=== PATIENT | female | born 1965 | race Caucasian/White ===

== ENCOUNTER 2020-07-08 08:53 | Day surgery (SDC) | payer BC, SELFPAY ==
[2020-07-01 15:20] VITALS: BMI 26.6
--- NOTE | 2020-07-07 08:25 | P.CONAN_ITS ---
Documented by User: Daysi Lawrence 07/07/20 08:25 HPI - Anesthesia Eval Consult details Narrative: 55yo F for [facility] Past Medical History Medical History COVID-19 vaccine administered History of anxiety Hx of ectopic Hx of renal calculi Surgical History Surgical History Hx of appendectomy Social History Social History Are you a primary wound care physician to a significant other at home: No Do you presently have visiting nurse or other home services: No Smoking Status: Never smoker Use of substances other than those prescribed or required for medical reasons: No Have you been hit, kicked, punched, or otherwise hurt by someone within the past year? If so, by whom?: No Advance Directives Information Provided: No Recently lost weight without trying: No Meds Allergies Allergy/AdvReac Type Severity Reaction Status Date / Time milk AdvReac Intermediate Gastrointestinal Verified 07/01/20 15:24 Upset Home Medications Medication Instructions Recorded Confirmed Last Taken Type paroxetine HCl [Paxil] 20 mg PO DAILY 07/01/20 07/01/20 Unknown History Exam Exam Date and Time: July 07, 2020 0825 Height,Weight and Vital Signs: Height 5 ft 7 in Weight 77.111 kg Assessment and Plan Assessment Anesthesia Assessment: Chart Reviewed Documented by User: Kate Hernandez 07/08/20 09:59 [facility] Past Medical History Medical History COVID-19 vaccine administered History of anxiety Hx of ectopic Hx of renal calculi Surgical History Surgical History Hx of appendectomy Social History Social History Are you a primary wound care physician to a significant other at home: No Do you presently have visiting nurse or other home services: No Smoking Status: Never smoker Use of substances other than those prescribed or required for medical reasons: No Have you been hit, kicked, punched, or otherwise hurt by someone within the past year? If so, by whom?: No Advance Directives Information Provided: No Recently lost weight without trying: No Meds Allergies Allergy/AdvReac Type Severity Reaction Status Date / Time milk AdvReac Intermediate Gastrointestinal Verified 07/01/20 15:24 Upset Home Medications Medication Instructions Recorded Confirmed Last Taken Type paroxetine HCl [Paxil] 20 mg PO DAILY 07/01/20 07/01/20 Unknown History Exam Airway Mallampati Class: II TM Dist: >3cm Neck ROM: Full Assessment and Plan Assessment Anesthesia Assessment: Anesthesia Plan Discussed and Chart Reviewed Final Anesthetic Review NPO: Yes ASA Class: II Final Preanesthetic Review: No Changes in Pt Med Stat, Meds/Allgs Chart Reviewed , Consent Obtained/Reviewed and Anes Risks/Benef Reviewed Patient Risk: Low Procedure Risk: Low Assessment/Block/Sedation in SS: Assess/Block/Sedation-SS Anesthetic Plan Anesthetic Plan: MAC: Disposition: Standard PACU
[2020-07-08 09:03] VITALS: BP 118/79; PULSE 64; RESP 20; TEMP 36.4; O2SAT 98
[2020-07-08] MEDS: Lactated Ringers 1,000 ML 100 ML IVCONT (09:33)
[2020-07-08 11:21] VITALS: BP 100/49; PULSE 67; RESP 16; TEMP 36.5; O2SAT 97
--- NOTE | 2020-07-08 11:26 | PM.OP ---
Brief Operative Note Date of Service: 07/08/20 Pre-op diagnosis: Screening Post-op diagnosis: other (Mild diverticulosis, Minimal internal hemorrhoids) Procedure: Colonoscopy to the cecum and TI Surgeon: Dm Almanza Anesthesia: MAC Estimated blood loss (mL): 0 Pathology: none sent Condition: stable Disposition: PACU
[2020-07-08 11:36] VITALS: BP 127/72; PULSE 62; RESP 16; TEMP 36.5; O2SAT 97
--- NOTE | 2020-07-08 11:42 | OP_ITS ---
SURGEON: Dm Almanza MD INDICATIONS: The patient presents for evaluation of colorectal cancer screening. Full consent has been obtained from her for this, including risks of bleeding and perforation. PREOPERATIVE DIAGNOSIS: Colorectal cancer screening. POSTOPERATIVE DIAGNOSIS: PROCEDURE PERFORMED: Colonoscopy to cecum and terminal ileum. ESTIMATED BLOOD LOSS: COMPLICATIONS: ANESTHESIA: Monitored anesthesia care. ASSISTANTS: SPECIMENS: POSTOPERATIVE DIAGNOSES: Colorectal cancer screening, mild sigmoid diverticulosis, small internal hemorrhoids. DESCRIPTION OF PROCEDURE: The patient was placed in the left lateral decubitus position. The digital rectal exam revealed no abnormalities. The Olympus video pediatric colonoscope was entered into the rectum and advanced easily to the cecum. Once in the cecum, I did identify normal-appearing cecal pouch with appendiceal orifice and a normal-appearing ileocecal valve. The terminal ileum was cannulated and appeared normal. The scope was withdrawn back in the colon. The entire cecum and ileocecal valve appeared normal. The scope was slowly withdrawn assessing all mucosal surfaces carefully. Preparation was excellent. I did not visualize any sign of polyps, colitis, nor angiodysplasia. There was a mild amount of sigmoid diverticulosis. In the rectum, scope was retroflexed visualizing minimal internal hemorrhoids, but no other pathology. The rectal mucosa appeared normal. The scope was straightened out and withdrawn from the patient. She tolerated procedure well and was returned to the recovery area in stable condition. IMPRESSION: 1. Mild sigmoid diverticulosis. 2. Minimal internal hemorrhoids. PLAN: Given the patient's negative colonoscopy and negative family history, I would recommend a followup colonoscopy in 10 years for further screening. She will otherwise see me on a p.r.n. basis. This has been discussed with her . MD JAZMYNE Patel/RENETTA / [id number]
== END 2020-07-08 11:56 | disposition home or self-care (01) ==
PROVIDERS: PCP Internal Medicine; Visit Provider Internal Medicine
PROC: 0DJD8ZZ Inspection of Lower Intestinal Tract, Via Natural or Artificial Opening Endoscopic (ICD-10-PCS; CPT 45378; principal; 2020-07-08 10:10)
DX: Z12.11 Encounter for screening for malignant neoplasm of colon (principal); K57.30 Diverticulosis of large intestine without perforation or abscess without bleeding; K64.8 Other hemorrhoids; F41.9 Anxiety disorder, unspecified; Z79.899 Other long term (current) drug therapy; Z87.442 Personal history of urinary calculi
CPT/HCPCS: 45378

== ENCOUNTER → 2021-02-02 07:54 | Outpatient (REF) | payer BC, SELFPAY ==
--- NOTE | 2021-02-02 | CA_ITS ---
Acquisition Time: 2021-02-02 08:02:54 Total Exercise Time: 00:09:26 Test Indications: Chest Pain Medications: PAROXETINE Protocol: FERNANDO Max HR: 164 BPM 98% of Pred: 166 BPM Max BP: 142/080 mmHG Max Work Load: 10.8 METS Exercise stress test with exercise 9 min 26 sec of Fernando protocol, with 5/10 burning along each side of sternum, no sob, without arrythmia, with normotensive response to exercise, without EKG changes meeting criteria for ischemia. In recovery, her chest discomfort resolved. Test reviewed with Dr Whitlock. Report being called to Dr Clements office with recommendation for stress echocardiogram for further evaluation. Referred By: Juanito Clements Overread By: ANA CRISTINA MARTINEZ
== END ==
LOC: HO.CARD 07:54
PROVIDERS: Visit Provider Internal Medicine
DX: R07.2 Precordial pain (principal)
CPT/HCPCS: 93017

== ENCOUNTER 2021-02-15 10:48 | Outpatient (REF) | payer BC, SELFPAY ==
[2021-02-15 12:57] LABS: Hematocrit 39.8 % (37-47); Hemoglobin 13.1 g/dl (12.0-16.0); Mean Corpuscular HGB Conc 32.9 g/dl (31.0-35.0); Mean Corpuscular Hemoglobin 29.5 pg (27.0-33.0); Mean Corpuscular Volume 89.6 fL (80-98); Mean Platelet Volume 10.6 fL (9.4-12.3); Platelet Count 270 X10*3/uL (160-400); Red Blood Count 4.44 X10*6/uL (4.20-5.50); Red Cell Distribution Width 11.9 % (11.0-16.0); White Blood Count 4.3 X10*3/uL (4.8-10.8)
[2021-02-15 13:04] LABS: Prothrombin Time 11.9 SEC (9.9-13.0)
[2021-02-15 13:25] LABS: Anion Gap 11 (12-20); Blood Urea Nitrogen 8 mg/dL (9-16); Calcium 9.5 mg/dL (8.4-10.2); Carbon Dioxide 27 mmol/L (22-29); Chloride 104 mmol/L (96-108); Cholesterol 218 mg/dL; Estimated Glomerular Filt Rate > 60; Glucose Random 77 mg/dL (60-115); HDL Cholesterol 43 mg/dL; LDL Cholesterol Calculated 152 mg/dl; Potassium 4.5 mmol/L (3.3-5.1); Sodium 137 mmol/L (135-145); Triglycerides 115 mg/dL
[2021-02-16 13:41] LABS: CRP High Sensitivity 1.6 mg/L
== END 2021-02-15 10:49 | disposition home or self-care (01) ==
LOC: HO.LAB 10:48
PROVIDERS: PCP Internal Medicine; Referring Provider Internal Medicine; Visit Provider Internal Medicine Cardiovascular Disease
DX: R07.9 Chest pain, unspecified (principal); E78.5 Hyperlipidemia, unspecified; I25.10 Atherosclerotic heart disease of native coronary artery without angina pectoris
CPT/HCPCS: 36415; 80048; 80061; 85027; 85610; 86141; 93005

== ENCOUNTER → 2021-03-10 14:04 | Outpatient (BNVA) | payer BC, SELFPAY | PROVIDERS: PCP Internal Medicine; Referring Provider Internal Medicine; Visit Provider Nurse Practitioner Family ==

== ENCOUNTER 2021-04-01 15:01 | Outpatient (REF) | payer BC, SELFPAY ==
--- NOTE | 2021-04-01 17:11 | PFT_ITS ---
FLOWS: FEV1 of 78% of predicted at 2.33 L. FVC 81% of predicted at 3.09 L. FEV1 to FVC ratio of 0.76. Positive bronchodilator response. LUNG VOLUMES: Total lung capacity 90% of predicted at 5.00 L. Residual volume 105% of predicted at 2.15 L. Slow vital capacity 82% of predicted at 2.85 L. Expiratory reserve volume 21% of predicted at 0.24 L. Diffusion capacity is normal. IMPRESSION: No obstructive or restrictive ventilatory defect. Positive bronchodilator response. Decreased expiratory reserve volume suggests extrathoracic restriction likely secondary to abdominal obesity. Ryan Montana MD AP/MODL / [id number]
== END 2021-04-01 15:02 | disposition home or self-care (01) ==
LOC: HO.RESP 15:01
PROVIDERS: PCP Internal Medicine; Visit Provider Nurse Practitioner Family
DX: R06.02 Shortness of breath (principal); R07.9 Chest pain, unspecified
CPT/HCPCS: 94060; 94727; 94729

== ENCOUNTER 2021-04-13 10:30 | Outpatient (REF) | payer BC, SELFPAY ==
[2021-04-13 10:35] LABS: MANUAL DIFF FLAG NO
[2021-04-13 10:41] LABS: Eosinophils Absolute Auto 0.1 X10*3/uL (0.0-0.4); Eosinophils Percent Auto 2.2 % (0-4); Hematocrit 38.7 % (37.0-47.0); Imm Gran Abs Auto 0.01 X10*3/uL (0.00-0.03); Imm Gran Pct Auto 0.2 % (0.0-0.4); Lymphocytes Absolute Auto 1.6 X10*3/uL (1.2-4.9); Lymphocytes Percent Auto 38.8 % (20-40); Mean Corpuscular HGB Conc 33.6 g/dl (31.0-35.0); Mean Corpuscular Hemoglobin 30.1 pg (27.0-33.0); Mean Corpuscular Volume 89.6 fL (80.0-98.0); Mean Platelet Volume 10.1 fL (9.4-12.3); Monocytes Absolute Auto 0.3 X10*3/uL (0.1-1.2); Monocytes Percent Auto 7.9 % (2-11); Neutrophils Absolute Auto 2.1 x10*3/uL (2.0-8.3); Neutrophils Percent Auto 49.9 % (45-73); Platelet Count 250 X10*3/uL (160-400); Red Blood Count 4.32 X10*6/uL (4.20-5.50); Red Cell Distribution Width 11.8 % (11.0-16.0); White Blood Count 4.2 X10*3/uL (4.8-10.8)
[2021-04-13 10:57] LABS: Alanine Aminotransferase 18 U/L (0-31); Albumin Level 3.9 g/dL (3.5-5.0); Alkaline Phosphatase 49 U/L (39-117); Anion Gap 10 (12-20); Aspartate Amino Transferase 14 U/L (5-31); Bilirubin Total 0.4 mg/dL (0.0-1.0); Blood Urea Nitrogen 13 mg/dL (9-16); Calcium 9.1 mg/dL (8.4-10.2); Carbon Dioxide 28 mmol/L (22-29); Chloride 107 mmol/L (96-108); Cholesterol 202 mg/dL; Estimated Glomerular Filt Rate > 60; Glucose Fasting 99 mg/dL (60-99); HDL Cholesterol 41 mg/dL; LDL Cholesterol Calculated 145 mg/dl; Potassium 4.7 mmol/L (3.3-5.1); Sodium 140 mmol/L (135-145); Total Protein 6.7 g/dL (6.5-8.0); Triglycerides 83 mg/dL
[2021-04-13 11:06] LABS: Appearance Urine HAZY; Color Urine YELLOW; Glucose Urine UA NEG (NEG); Leukocyte Esterase Urine NEG (NEG); Nitrite Urine NEG (NEG); Specific Gravity - Urine 1.025 (1.005-1.025); Urine Blood NEG (NEG); Urine Ketones NEG (NEG); Urine Protein NEG (NEG-TRACE)
[2021-04-13 11:21] LABS: Vitamin D 25-OH Total 22.6 ng/mL (>30)
== END 2021-04-13 10:31 | disposition home or self-care (01) ==
LOC: HO.LNP 10:30
PROVIDERS: Visit Provider Internal Medicine
DX: Z00.00 Encounter for general adult medical examination without abnormal findings (principal); E55.9 Vitamin D deficiency, unspecified
CPT/HCPCS: 80053; 80061; 81003; 82306; 85025

== ENCOUNTER → 2021-06-09 07:36 | Outpatient (REF) | payer BC, SELFPAY ==
--- NOTE | 2021-06-09 07:38 | CA_ITS ---
Transthoracic Echocardiogram Patient (Last, First, Middle): Lupe Pina A Gender: Female Date of : 1965 Age: 55 Procedure Date: 06/09/2021 Procedure Type: Transthoracic Echocardiogram Location: OP Height: 170.18 cm Weight: 81.65 kg BSA: 1.93 m2 Heart Rate: bpm BP: 120 / 80 mmHg Director Zone: MAGDALENA Hare MD: Jesenia Castillo INBOUND SALES MANAGER-Lorelei Drying Unit Felting Machine Operator: Roberto Whitlock MD Symptoms: R07.9 - Chest pain, unspecified Study Quality: Fair ECG Rhythm: Sinus Conclusions: - Essentially normal study with mild mitral regurgitation Findings Left Ventricle Normal left ventricular size, thickness, and systolic function. The visually estimated ejection fraction is between 60-65%. Diastolic function is normal for age. Right Ventricle Normal right ventricular cavity size and systolic function. Atria Both atria are normal in size. There is lipomatous hypertrophy of the interatrial septum. There is no evidence of interatrial shunt. Aortic Valve Normal aortic valve structure and function. There is no aortic valve stenosis. There is no aortic valve regurgitation. Mitral Valve Normal mitral valve structure and function. There is mild mitral valve regurgitation. There is no mitral valve stenosis. Pulmonic Valve The pulmonic valve was not well visualized. Tricuspid Valve Likely normal tricuspid valve structure and function. There is trace tricuspid valve regurgitation. The right ventricular systolic pressure is normal. Normal right atrial pressure. There is no evidence of pulmonary hypertension. Great Vessels All visible segments of the aorta are normal in size. The pulmonary artery was not well visualized. Venous The inferior vena cava is normal in size and collapses greater than 50% with inspiration. Pericardium/Pleural There is no evidence of pericardial effusion. Prior Study Comparison No prior study available for comparison. Measurements 2D Linear Measurements IVSd: 0.94 0.6-0.9/0.6-1.0 cm LVIDd: 4.57 3.9-5.3/4.2-5.9 cm LVIDd Index: 2.37 2.4-3.2/2.2-3.1 cm/m2 LVIDs: 2.87 2.0-3.6 cm LVPWd: 0.98 0.7-1.1 cm Ao Root: 3.10 2.1-3.5 cm LA Diam: 3.70 2.7-3.8/3.0-4.0 cm LAIDs Index: 1.92 1.5-2.3 cm/m2 LV Mass: 185.43 67-162/88-224 g LV Mass Index: 96.08 43-95/49-115 g/m2 LVOT Diam: 2.10 3.0+(-)1.3 cm 2D Systolic Function EF 4C: 67.80 >55% EF 2C: 61.10 >55% EF BiP: 66.50 >55% Mitral Valve MV Pk E: 0.84 MV PK A: 0.69 MV Decel Time: 296.00 E/A: 1.20 E'Lateral: 8.49 E'Medial: 7.18 E/E' Med: 11.70 E/E' Lat: 9.90 PHT: 87.00 MVA PHT: 2.53 Decel Treasure: 2.84 Aortic Valve AoV Pk Alonso: 1.41 AoV Mn Alonso: 1.11 AoV VTI: 0.34 AoV Pk Grad: 8.00 Aov Mn Grad: 5.00 SAGE Cont.VTI: 2.80 LVOT LVOT Pk Alonso: 1.14 LVOT Mn Alonso: 0.83 LVOT VTI: 0.28 LVOT Pk Grad: 5.00 LVOT Mn Grad: 3.00 LVOT Diam: 2.10 LVOT Area: 3.46 Diastolic Function MV Pk E: 0.84 MV Pk A: 0.69 E/A: 1.20 E'Medial: 7.18 E/E' Med: 11.70 E' Laterial: 8.49 E/E' Lat: 9.90 Right Ventricle TAPSE (mm): 22.80 TVS' Alonso: 12.00 Tricuspid Valve TR Pk Alonso: 1.69 TR Pk Grad: 11.00 RA Press: 3.00 RVSP: 14.00 Great Vessels Aorta Ao Root-2D: 3.10 2.0-3.7 cm Ao Asc: 3.40 2.1-3.4 cm Ao Arch: 2.60 Updated in Other Vendor System with Status of Final Roberto Whitlock MD electronically signed on 06/09/2021 11:22:38 AM with status of Final
== END ==
LOC: HO.CARD 07:36
PROVIDERS: PCP Internal Medicine; Visit Provider Nurse Practitioner Family
DX: R07.9 Chest pain, unspecified (principal); R06.02 Shortness of breath
CPT/HCPCS: 93306

== ENCOUNTER → 2021-07-05 12:28 | Outpatient (BNVA) | payer BC, SELFPAY | PROVIDERS: PCP Internal Medicine; Referring Provider Internal Medicine; Visit Provider Internal Medicine Cardiovascular Disease | DX: R07.9 Chest pain, unspecified (principal) | CPT/HCPCS: 99212 ==

== ENCOUNTER 2021-07-26 14:32 | Outpatient (REF) | payer BC, SELFPAY ==
[2021-07-26 15:53] LABS: MANUAL DIFF FLAG NO
[2021-07-26 16:15] LABS: Basophils Absolute Auto 0.1 X10*3/uL (0.0-0.2); Basophils Percent Auto 0.8 % (0-2); Eosinophils Absolute Auto 0.1 X10*3/uL (0.0-0.4); Eosinophils Percent Auto 1.9 % (0-4); Hematocrit 39.9 % (37.0-47.0); Hemoglobin 13.6 g/dl (12.0-16.0); Imm Gran Abs Auto 0.02 X10*3/uL (0.00-0.03); Imm Gran Pct Auto 0.3 % (0.0-0.4); Lymphocytes Absolute Auto 2.1 X10*3/uL (1.2-4.9); Lymphocytes Percent Auto 32.8 % (20-40); Mean Corpuscular HGB Conc 34.1 g/dl (31.0-35.0); Mean Corpuscular Hemoglobin 30.4 pg (27.0-33.0); Mean Corpuscular Volume 89.3 fL (80.0-98.0); Monocytes Absolute Auto 0.4 X10*3/uL (0.1-1.2); Monocytes Percent Auto 5.6 % (2-11); Neutrophils Absolute Auto 3.7 x10*3/uL (2.0-8.3); Neutrophils Percent Auto 58.6 % (45-73); Platelet Count 305 X10*3/uL (160-400); Red Blood Count 4.47 X10*6/uL (4.20-5.50); Red Cell Distribution Width 11.9 % (11.0-16.0); White Blood Count 6.3 X10*3/uL (4.8-10.8)
[2021-07-26 16:52] LABS: Erythrocyte Sedimentation Rate 5 MM/HR (0-20)
== END 2021-07-26 14:33 | disposition home or self-care (01) ==
LOC: HO.LAB 14:32
PROVIDERS: PCP Internal Medicine; Visit Provider Hospitalist
DX: R06.02 Shortness of breath (principal); R07.9 Chest pain, unspecified; Z01.82 Encounter for allergy testing
CPT/HCPCS: 36415; 82785; 85025; 85652; 86003

== ENCOUNTER 2021-12-21 16:06 | Outpatient (REF) | payer BC, SELFPAY ==
--- NOTE | ~2021-12-21 | XR_ITS ---
EXAMINATION: XR CHEST CLINICAL INFORMATION: Shortness of breath. COMPARISON: None TECHNIQUE: 2 views of the chest were obtained. FINDINGS: No significant abnormality is noted involving the heart, lungs, mediastinum, bony thorax or soft tissues. XR/XR chest 2V IMPRESSION: Unremarkable examination.
== END 2021-12-21 16:07 | disposition home or self-care (01) ==
LOC: HO.XRAY 16:06
PROVIDERS: PCP Internal Medicine; Visit Provider Hospitalist
DX: R07.9 Chest pain, unspecified (principal); R06.02 Shortness of breath
CPT/HCPCS: 71046

== ENCOUNTER → 2022-01-19 16:08 | Outpatient (REF) | payer BC, SELFPAY | LOC: HO.SL 16:08 | PROVIDERS: PCP Internal Medicine; Visit Provider Hospitalist | DX: G47.33 Obstructive sleep apnea (adult) (pediatric) (principal) | CPT/HCPCS: 95806 ==

== ENCOUNTER → 2022-06-23 15:27 | Outpatient (BNVA) | payer BC, SELFPAY | PROVIDERS: PCP Internal Medicine; Visit Provider Hospitalist | DX: J44.9 Chronic obstructive pulmonary disease, unspecified (principal) ==

== ENCOUNTER 2022-07-07 11:10 | Outpatient (REF) | payer BC, SELFPAY ==
[2022-07-07 11:14] LABS: MANUAL DIFF FLAG NO
[2022-07-07 12:48] LABS: Basophils Percent Auto 1.1 % (0-2); Eosinophils Absolute Auto 0.1 X10*3/uL (0.0-0.4); Eosinophils Percent Auto 2.7 % (0-4); Hematocrit 39.6 % (37.0-47.0); Hemoglobin 13.1 g/dl (12.0-16.0); Imm Gran Abs Auto 0.01 X10*3/uL (0.00-0.03); Imm Gran Pct Auto 0.3 % (0.0-0.4); Lymphocytes Absolute Auto 1.4 X10*3/uL (1.2-4.9); Lymphocytes Percent Auto 37.7 % (20-40); Mean Corpuscular HGB Conc 33.1 g/dl (31.0-35.0); Mean Corpuscular Hemoglobin 29.4 pg (27.0-33.0); Mean Platelet Volume 10.8 fL (9.4-12.3); Monocytes Absolute Auto 0.3 X10*3/uL (0.1-1.2); Monocytes Percent Auto 7.2 % (2-11); Neutrophils Absolute Auto 1.9 x10*3/uL (2.0-8.3); Platelet Count 265 X10*3/uL (160-400); Red Blood Count 4.45 X10*6/uL (4.20-5.50); Red Cell Distribution Width 12.3 % (11.0-16.0); White Blood Count 3.8 X10*3/uL (4.8-10.8)
[2022-07-07 12:51] LABS: Appearance Urine Cloudy; Color Urine Yellow; Glucose Urine UA Negative (Negative); Leukocyte Esterase Urine Trace (Negative); Nitrite Urine Negative (Negative); Specific Gravity - Urine 1.025 (1.005-1.025); UMIC TRIGGER UACC YES; Urine Blood Negative (Negative); Urine Ketones Negative (Negative); Urine Protein Negative (Neg-Trace)
[2022-07-07 13:05] LABS: Bacteria Urine 2+ (None Seen); Hyaline Casts Urine 0-2 /LPF (0-2); Other Crystals Urine Present; RBC Urine 0-2 /HPF (0-2); WBC Urine 0-5 /HPF (0-5)
[2022-07-07 14:02] LABS: Alanine Aminotransferase 37 U/L (0-31); Albumin Level 4.1 g/dL (3.5-5.0); Alkaline Phosphatase 57 U/L (39-117); Anion Gap 10 (12-20); Aspartate Amino Transferase 24 U/L (5-31); Bilirubin Total 0.5 mg/dL (0.0-1.0); Blood Urea Nitrogen 16 mg/dL (9-16); Carbon Dioxide 30 mmol/L (22-29); Chloride 104 mmol/L (96-108); Cholesterol 233 mg/dL; Estimated Glomerular Filt Rate > 60; Glucose Fasting 99 mg/dL (60-99); HDL Cholesterol 43 mg/dL; LDL Cholesterol Calculated 173 mg/dl; Potassium 4.2 mmol/L (3.3-5.1); Sodium 140 mmol/L (135-145); Total Protein 6.7 g/dL (6.5-8.0); Triglycerides 85 mg/dL
== END 2022-07-07 11:11 | disposition home or self-care (01) ==
LOC: HO.LNP 11:10
PROVIDERS: Visit Provider Internal Medicine
DX: Z00.00 Encounter for general adult medical examination without abnormal findings (principal); E55.9 Vitamin D deficiency, unspecified
CPT/HCPCS: 80053; 80061; 81001; 82306; 85025

== ENCOUNTER 2022-07-14 16:16 | Outpatient (REF) | payer BC, SELFPAY ==
[2022-07-14 16:19] LABS: MANUAL DIFF FLAG NO
[2022-07-14 16:32] LABS: Basophils Absolute Auto 0.1 X10*3/uL (0.0-0.2); Basophils Percent Auto 1.3 % (0-2); Eosinophils Absolute Auto 0.1 X10*3/uL (0.0-0.4); Eosinophils Percent Auto 2.5 % (0-4); Hemoglobin 13.3 g/dl (12.0-16.0); Imm Gran Abs Auto 0.01 X10*3/uL (0.00-0.03); Imm Gran Pct Auto 0.2 % (0.0-0.4); Lymphocytes Percent Auto 42.7 % (20-40); Mean Corpuscular HGB Conc 32.4 g/dl (31.0-35.0); Mean Corpuscular Hemoglobin 29.4 pg (27.0-33.0); Mean Corpuscular Volume 90.5 fL (80.0-98.0); Mean Platelet Volume 10.1 fL (9.4-12.3); Monocytes Absolute Auto 0.4 X10*3/uL (0.1-1.2); Monocytes Percent Auto 8.2 % (2-11); Neutrophils Absolute Auto 2.2 x10*3/uL (2.0-8.3); Neutrophils Percent Auto 45.1 % (45-73); Platelet Count 305 X10*3/uL (160-400); Red Blood Count 4.53 X10*6/uL (4.20-5.50); Red Cell Distribution Width 12.1 % (11.0-16.0); White Blood Count 4.8 X10*3/uL (4.8-10.8)
== END 2022-07-14 16:17 | disposition home or self-care (01) ==
LOC: HO.LNP 16:16
PROVIDERS: Visit Provider Internal Medicine
DX: D70.9 Neutropenia, unspecified (principal)
CPT/HCPCS: 85025

== ENCOUNTER → 2022-10-27 15:40 | Outpatient (BNVA) | payer BC, SELFPAY | PROVIDERS: PCP Internal Medicine; Visit Provider Hospitalist | DX: J44.9 Chronic obstructive pulmonary disease, unspecified (principal) ==

== ENCOUNTER 2023-03-14 10:33 | Outpatient (REF) | payer BC, SELFPAY ==
[2023-03-14 10:36] LABS: MANUAL DIFF FLAG NO
[2023-03-14 11:14] LABS: Basophils Percent Auto 0.8 % (0-2); Eosinophils Absolute Auto 0.1 X10*3/uL (0.0-0.4); Eosinophils Percent Auto 2.9 % (0-4); Hematocrit 40.9 % (37.0-47.0); Hemoglobin 13.3 g/dl (12.0-16.0); Imm Gran Abs Auto 0.01 X10*3/uL (0.00-0.03); Imm Gran Pct Auto 0.2 % (0.0-0.4); Lymphocytes Absolute Auto 2.1 X10*3/uL (1.2-4.9); Lymphocytes Percent Auto 42.2 % (20-40); Mean Corpuscular HGB Conc 32.5 g/dl (31.0-35.0); Mean Corpuscular Hemoglobin 28.6 pg (27.0-33.0); Mean Platelet Volume 10.3 fL (9.4-12.3); Monocytes Absolute Auto 0.3 X10*3/uL (0.1-1.2); Monocytes Percent Auto 6.6 % (2-11); Neutrophils Absolute Auto 2.3 x10*3/uL (2.0-8.3); Neutrophils Percent Auto 47.3 % (45-73); Platelet Count 298 X10*3/uL (160-400); Red Blood Count 4.65 X10*6/uL (4.20-5.50); Red Cell Distribution Width 11.9 % (11.0-16.0); White Blood Count 4.9 X10*3/uL (4.8-10.8)
== END 2023-03-14 10:34 | disposition home or self-care (01) ==
LOC: HO.LNP 10:33
PROVIDERS: Visit Provider Internal Medicine
DX: D70.9 Neutropenia, unspecified (principal)
CPT/HCPCS: 85025

== ENCOUNTER 2023-04-03 12:42 | Outpatient (AMB) | payer BC, SELFPAY ==
[2023-04-03 12:47] VITALS: BP 110/60; PULSE 62
--- NOTE | 2023-04-03 12:47 | MHC.OFFVIS ---
Intake Vital Signs 04/03/23 12:47 Height 5 ft 7 in BMI Reason not done Patient refused/unable BP 110/60 Blood Pressure Location Lt brachial Position Sitting Pulse 62 Intake Visit Reasons: Last seen 07-13/Dr. 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 She has exhausted all other options including PFTs which had negative as well as acid reflux which is negative. She also tried medicines facet reflux prior to exercise. However she notices when she pushes herself and heart rate rises at about 155-160 beats per minute she would notice the symptoms. At a lower heart rate she does not notice the symptoms. She then usually has to stop exercising in the symptoms resolved. She does not get any other symptoms at other times. She is very bothered at this is affecting her lifestyle. [facility] Medical History (Updated 10/30/22 @ 23:38 by Kuldeep Pascual MD) Has daytime drowsiness Hx of renal calculi Hx of ectopic COVID-19 vaccine administered History of anxiety Surgical History History of colposcopy History of colonoscopy History of appendectomy History of cardiac catheterization Family History Father No problems noted. Mother Afib Social History Are you a primary family day care provider to a significant other at home: No Do you presently have visiting nurse or other home services: No Patient Tobacco Use Status: Never used Tobacco Review of Systems Const Reports chills, Reports fatigue, Reports fever(s), Reports frequent falls, Reports weakness, Reports weight gain and Reports weight loss ENT Reports dizziness Card Reports chest pain, Reports leg edema, Reports lightheadedness, Reports palpitations, Reports dyspnea and Reports dyspnea on exertion Resp Reports cough, Reports dyspnea and Reports dyspnea on exertion GI Reports hematochezia Musc Reports abnormal gait, Reports muscle weakness, Reports numbness, Reports radiating pain into limb and Reports tingling Neuro Denies Abnormal speech present, Reports abnormal gait, Reports dizziness, Reports frequent falls, Reports numbness, Reports tingling and Reports weakness Endo Reports fatigue and Reports palpitations Physical Exam Vital Signs: Last Vital Signs Pulse 62 04/03/23 12:47 BP 110/60 04/03/23 12:47 Const General: cooperative, comfortable, no acute distress, well developed, alert, awake and well groomed Nutritional Appearance: average body habitus Orientation/consciousness: patient oriented x3 Limitations: no limitations Neck Neck: Yes trachea midline, Yes supple and Yes no JVD Chest Chest palpation & inspection: normal inspection of the chest Resp Effort & Inspection: normal respiratory effort Auscultation: clear to auscultation bilaterally Cardio Jugular venous distension: no JVD Palpation: normal PMI Rate: regular rate Rhythm: regular rhythm Heart sounds: S1 normal heart sound present, S2 normal heart sound present, no click, no gallops, no murmurs and no rubs GI Auscultation: normal bowel sounds Skin General skin exam: no rashes or lesions noted Neuro General: patient oriented x3 and no focal motor deficits Speech: No Abnormal speech present Extrem General: Yes no clubbing, cyanosis or edema Office Procedures EKG Details: EKG shows normal sinus rhythm with left anterior fascicular block 22757-[id number], Complete Assessment & Plan Assessment & Plan (1) Exertional chest pain: Comment: muscoloskeletal component, but does not explain the burning sensation in the substernal area. ?esophageal irritation/spasms versus primzmental angina. Code(s): R07.9 - Chest pain, unspecified Plan: Exertional chest pain in this middle-aged woman with normal coronary arteries by cardiac catheterization. The symptoms highly suggestive of myocardial ischemia and could represent angina with normal coronary arteries, usually due to microvascular dysfunction. Will need to prove this with myocardial flow reserve testing with Cardiac PET to test for myocardial flow reserve with vaso dilator testing. If this is abnormal then we can potentially empirically treat this with either beta-blockers and/or Ranexa therapy. This was discussed with her. Again discuss the good prognosis with normal coronary arteries by cardiac catheterization. Continue lifestyle modification. Will follow up in the clinic after cardiac testing Coding Level of Care Code Est Pt Level 3 (98214) Diagnoses Exertional chest pain R07.9 CPT Codes EKG - CPT: 22184-[id number], Complete ([id number])
== END 2023-04-03 13:10 | disposition home or self-care (01) ==
PROVIDERS: PCP Internal Medicine; Visit Provider Internal Medicine Cardiovascular Disease
DX: R07.9 Chest pain, unspecified (principal)
CPT/HCPCS: 93010; 99213

== ENCOUNTER → 2023-04-03 12:42 | Outpatient (BNVA) | payer BC, SELFPAY | PROVIDERS: PCP Internal Medicine; Visit Provider Internal Medicine Cardiovascular Disease | DX: R07.9 Chest pain, unspecified (principal) | CPT/HCPCS: 93005 ==

== ENCOUNTER 2023-04-04 08:58 | Outpatient (REF) | payer BC, SELFPAY ==
--- NOTE | ~2023-04-04 | US_ITS ---
EXAMINATION: US ABDOMEN COMPLETE CLINICAL INFORMATION: Calculus of gallbladder without obstruction. COMPARISON: None available. TECHNIQUE: Real-time imaging of the abdominal viscera. FINDINGS: PANCREAS: Normal head and body, the tail is obscured by bowel gas. ABDOMINAL AORTA: The proximal, mid, and distal segments are normal in caliber. After the Rotex plaque is seen within the distal abdominal aorta. INFERIOR VENA CAVA: Visualized portions are normal. LIVER: The liver is normal in size. The liver contour is normal. There is diffuse increased liver parenchymal echogenicity, consistent with hepatic steatosis. 1.0 x 1.0 x 1.4 cm bilobed cyst is seen in the left lobe. There is no intrahepatic biliary duct dilatation seen. GALLBLADDER: Normal. The gallbladder is physiologically distended without evidence of stones, sludge, polyps, wall thickening or pericholecystic fluid. COMMON BILE DUCT: Normal in caliber measuring 0.5 cm in diameter. RIGHT KIDNEY: Normal. No hydronephrosis. No renal calculi or focal parenchymal lesions. The kidney measures 10.5 cm in maximum dimension. LEFT KIDNEY: Normal. No hydronephrosis. No renal calculi or focal parenchymal lesions. The kidney measures 10.7 cm in maximum dimension. SPLEEN: Normal. The spleen measures 10.0 cm in maximum dimension. FREE FLUID: None. US/US abdomen complete IMPRESSION: 1. Hepatic steatosis. 2. 1.4 cm bilobed cyst in the left lobe of the liver. 3. No cholelithiasis.
== END 2023-04-04 08:59 | disposition home or self-care (01) ==
LOC: HO.HMGCX 08:58
PROVIDERS: PCP Internal Medicine; Visit Provider Internal Medicine
DX: K80.20 Calculus of gallbladder without cholecystitis without obstruction (principal)
CPT/HCPCS: 76700

== ENCOUNTER 2023-06-09 09:43 | Outpatient (AMB) | payer BC, SELFPAY ==
--- NOTE | 2023-06-09 09:50 | MHC.OFFVIS ---
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 She continues to have exertional chest burning which limits her activity level. She says when she gets into mid 140s heart rate, she has this symptoms and has to stop. She can not advanced in her running program. She underwent cardiac PET scan at [facility] which shows normal coronary flow reserve and no evidence of ischemia. She is very bothered by her symptoms. She says she is tried all therapy from pulmonary as well as GI perspective in the past. She is even tried nitrates without any help. [facility] Medical History Has daytime drowsiness Hx of renal calculi Hx of ectopic COVID-19 vaccine administered History of anxiety Surgical History History of colposcopy History of colonoscopy History of appendectomy History of cardiac catheterization Family History Father No problems noted. Mother Afib Social History Are you a primary child care specialist to a significant other at home: No Do you presently have visiting nurse or other home services: No Patient Tobacco Use Status: Never used Tobacco Review of Systems Const Denies chills, Denies fatigue, Denies fever(s), Denies frequent falls, Denies weakness, Denies weight gain and Denies weight loss ENT Denies dizziness Card Denies chest pain, Denies leg edema, Denies lightheadedness, Denies palpitations, Denies dyspnea, Denies dyspnea on exertion, Denies orthopnea and Denies other (loss of consciousness) Resp Denies cough, Denies dyspnea and Denies dyspnea on exertion GI Denies hematochezia and Denies change in stool character Musc Denies abnormal gait, Denies muscle weakness, Denies numbness, Denies radiating pain into limb and Denies tingling Neuro Denies Abnormal speech present, Denies abnormal gait, Denies dizziness, Denies frequent falls, Denies numbness, Denies tingling and Denies weakness Endo Denies fatigue and Denies palpitations Physical Exam Vital Signs: Last Vital Signs Pulse 68 06/09/23 09:51 BP 110/64 06/09/23 09:51 BMI result Body Mass Index 28.0 Const General: cooperative, comfortable, no acute distress, well developed, alert, awake and well groomed Nutritional Appearance: average body habitus Orientation/consciousness: patient oriented x3 Limitations: no limitations Neck Neck: Yes trachea midline, Yes supple and Yes no JVD Chest Chest palpation & inspection: normal inspection of the chest Resp Effort & Inspection: normal respiratory effort Auscultation: clear to auscultation bilaterally Cardio Jugular venous distension: no JVD Palpation: normal PMI Rate: regular rate Rhythm: regular rhythm Heart sounds: S1 normal heart sound present, S2 normal heart sound present, no click, no gallops, no murmurs and no rubs GI Auscultation: normal bowel sounds Skin General skin exam: no rashes or lesions noted Neuro General: patient oriented x3 and no focal motor deficits Speech: No Abnormal speech present Extrem General: Yes no clubbing, cyanosis or edema Assessment & Plan Assessment & Plan (1) Exertional chest pain: Comment: muscoloskeletal component, but does not explain the burning sensation in the substernal area. ?esophageal irritation/spasms versus primzmental angina. Code(s): R07.9 - Chest pain, unspecified Plan: Patient with very limiting exertional chest pain with no clear evidence of myocardial abnormality with no evidence of reduction coronary flow reserve suggestive of microvascular disease. She has no epicardial stenosis. Her heart is structurally normal otherwise without any significant abnormality. Unclear as to the cause of her symptoms. We discussed possibilities although she wants to empirically pursue therapy. We can prescribe her Ranexa to improve calcium loading with exercise and reduced oxygen demand to see if this would help her symptoms. If this helps her symptoms can continue it for long-term. Potential side effects were discussed with her. Will follow up in the clinic if need be. Thank you for allowing me to partake in the care Medications: New ranolazine ER 500 mg PO BID 60 tabs 1RF Coding Level of Care Code Est Pt Level 3 (03616) Diagnoses Exertional chest pain R07.9
[2023-06-09 09:51] VITALS: BP 110/64; PULSE 68; BMI 28.0
== END 2023-06-09 10:08 | disposition home or self-care (01) ==
PROVIDERS: PCP Internal Medicine; Visit Provider Internal Medicine Cardiovascular Disease
DX: R07.9 Chest pain, unspecified (principal)
CPT/HCPCS: 99213

== ENCOUNTER → 2023-06-09 09:43 | Outpatient (BNVA) | payer BC, SELFPAY | PROVIDERS: PCP Internal Medicine; Visit Provider Internal Medicine Cardiovascular Disease ==

== ENCOUNTER 2023-07-13 11:57 | Outpatient (REF) | payer BC, SELFPAY ==
[2023-07-13 12:01] LABS: MANUAL DIFF FLAG NO
[2023-07-13 12:15] LABS: Appearance Urine Clear; Color Urine Yellow; Glucose Urine UA Negative (Negative); Leukocyte Esterase Urine Small (1+) (Negative); Nitrite Urine Negative (Negative); PH 6.5 (5.0-9.0); UMIC TRIGGER UACC YES; Urine Blood Negative (Negative); Urine Ketones Negative (Negative); Urine Protein Negative (Neg-Trace)
[2023-07-13 12:22] LABS: Eosinophils Absolute Auto 0.1 X10*3/uL (0.0-0.4); Eosinophils Percent Auto 2.3 % (0-4); Hematocrit 40.3 % (37.0-47.0); Hemoglobin 13.5 g/dl (12.0-16.0); Imm Gran Abs Auto 0.01 X10*3/uL (0.00-0.03); Imm Gran Pct Auto 0.3 % (0.0-0.4); Lymphocytes Absolute Auto 1.6 X10*3/uL (1.2-4.9); Mean Corpuscular HGB Conc 33.5 g/dl (31.0-35.0); Mean Corpuscular Hemoglobin 29.5 pg (27.0-33.0); Mean Platelet Volume 10.2 fL (9.4-12.3); Monocytes Absolute Auto 0.3 X10*3/uL (0.1-1.2); Monocytes Percent Auto 6.5 % (2-11); Neutrophils Percent Auto 50.9 % (45-73); Platelet Count 282 X10*3/uL (160-400); Red Blood Count 4.58 X10*6/uL (4.20-5.50); Red Cell Distribution Width 12.2 % (11.0-16.0)
[2023-07-13 12:39] LABS: Bacteria Urine 2+ (None Seen); Hyaline Casts Urine 0-2 /LPF (0-2); UACC Culture Trigger YES; WBC Urine 0-5 /HPF (0-5)
[2023-07-13 12:40] LABS: Other Crystals Urine Present; RBC Urine 0-2 /HPF (0-2)
[2023-07-13 12:56] LABS: Alanine Aminotransferase 16 U/L (0-31); Albumin Level 4.3 g/dL (3.5-5.0); Alkaline Phosphatase 62 U/L (39-117); Anion Gap 12 (12-20); Aspartate Amino Transferase 14 U/L (5-31); Bilirubin Total 0.6 mg/dL (0.0-1.0); Blood Urea Nitrogen 15 mg/dL (9-16); Calcium 9.8 mg/dL (8.4-10.2); Carbon Dioxide 28 mmol/L (22-29); Chloride 105 mmol/L (96-108); Cholesterol 222 mg/dL (<200); Estimated Glomerular Filt Rate > 60; Glucose Fasting 92 mg/dL (60-99); HDL Cholesterol 47 mg/dL (>40); LDL Cholesterol Calculated 159 mg/dL (<100); Potassium 4.2 mmol/L (3.3-5.1); Sodium 141 mmol/L (135-145); Total Protein 7.5 g/dL (6.5-8.0); Triglycerides 80 mg/dL (<150)
[2023-07-13 13:11] LABS: Vitamin D 25-OH Total 34.3 ng/mL (>30)
== END 2023-07-13 11:58 | disposition home or self-care (01) ==
LOC: HO.LNP 11:57
PROVIDERS: Visit Provider Internal Medicine
DX: Z00.00 Encounter for general adult medical examination without abnormal findings (principal); Z13.6 Encounter for screening for cardiovascular disorders; E55.9 Vitamin D deficiency, unspecified; D70.9 Neutropenia, unspecified
CPT/HCPCS: 80053; 80061; 81001; 82306; 85025; 87086

== ENCOUNTER 2024-07-18 10:44 | Outpatient (REF) | payer BC, SELFPAY ==
[2024-07-18 10:47] LABS: MANUAL DIFF FLAG NO
[2024-07-18 11:13] LABS: Eosinophils Absolute Auto 0.1 X10*3/uL (0.0-0.4); Eosinophils Percent Auto 1.7 % (0-4); Hematocrit 38.2 % (37.0-47.0); Hemoglobin 12.7 g/dl (12.0-16.0); Imm Gran Abs Auto 0.01 X10*3/uL (0.00-0.03); Imm Gran Pct Auto 0.2 % (0.0-0.4); Lymphocytes Absolute Auto 1.6 X10*3/uL (1.2-4.9); Lymphocytes Percent Auto 39.4 % (20-40); Mean Corpuscular HGB Conc 33.2 g/dl (31.0-35.0); Mean Corpuscular Hemoglobin 29.7 pg (27.0-33.0); Mean Corpuscular Volume 89.5 fL (80.0-98.0); Mean Platelet Volume 10.3 fL (9.4-12.3); Monocytes Absolute Auto 0.3 X10*3/uL (0.1-1.2); Monocytes Percent Auto 7.4 % (2-11); Neutrophils Percent Auto 50.3 % (45-73); Platelet Count 290 X10*3/uL (160-400); Red Blood Count 4.27 X10*6/uL (4.20-5.50); Red Cell Distribution Width 12.5 % (11.0-16.0); White Blood Count 4.1 X10*3/uL (4.8-10.8)
[2024-07-18 11:18] LABS: Appearance Urine Clear; Color Urine Dark Yellow; Glucose Urine UA Negative (Negative); Leukocyte Esterase Urine Negative (Negative); Nitrite Urine Negative (Negative); Specific Gravity - Urine 1.025 (1.005-1.025); Urine Blood Negative (Negative); Urine Ketones Negative (Negative); Urine Protein Negative (Neg-Trace)
[2024-07-18 11:26] LABS: Bacteria Urine None Seen (None Seen); Hyaline Casts Urine 0-2 /LPF (0-2); RBC Urine 0-2 /HPF (0-2); Squamous Epithelial Cell Urine 0-2 /HPF (0-2); WBC Urine 0-5 /HPF (0-5)
[2024-07-18 11:51] LABS: Alanine Aminotransferase 17 U/L (0-31); Albumin Level 4.2 g/dL (3.5-5.0); Alkaline Phosphatase 57 U/L (39-117); Anion Gap 9 (12-20); Aspartate Amino Transferase 15 U/L (5-31); Bilirubin Total 0.7 mg/dL (0.0-1.0); Blood Urea Nitrogen 14 mg/dL (9-16); Calcium 9.4 mg/dL (8.4-10.2); Carbon Dioxide 29 mmol/L (22-29); Chloride 108 mmol/L (96-108); Cholesterol 231 mg/dL (<200); Estimated Glomerular Filt Rate > 60; Glucose Fasting 93 mg/dL (60-99); HDL Cholesterol 51 mg/dL (>40); LDL Cholesterol Calculated 164 mg/dL (<100); Potassium 4.2 mmol/L (3.3-5.1); Sodium 142 mmol/L (135-145); Triglycerides 81 mg/dL (<150); Vitamin D 25-OH Total 48.3 ng/mL (>30)
== END 2024-07-18 10:45 | disposition home or self-care (01) ==
LOC: HO.LNP 10:44
PROVIDERS: Visit Provider Internal Medicine
DX: Z00.00 Encounter for general adult medical examination without abnormal findings (principal); E55.9 Vitamin D deficiency, unspecified; I70.90 Unspecified atherosclerosis
CPT/HCPCS: 80053; 80061; 81001; 82306; 85025

== ENCOUNTER 2025-01-21 11:02 | Outpatient (REF) | payer BC, SELFPAY ==
--- OUTSIDE RECORDS SUMMARY | 2023-09-19 11:34 | XMS_ITS ---
Author Organization Juanito Clements MD Address [address] [facility] [address] [place] [phone] Care Team Providers Care Studio Operation Engineer Name Role Phone Juanito Clements Primary Care Provider REASON FOR VISIT RF Medications Medication SIG (Take, Route, Fr equency, Duration) Notes Start Date End Date Status valACYclovir HCl 1 GM 2 tablet Orally tw ice a day for one day for 5 days 03/26/2021 Active Encounters Encounter Location Date Provider Diagnosis Juanito Clements MD [address] [facility] [address] [place] [phone] 09/19/2023 Juanito Clements Plan Of Treatment Medication Medication Name Sig Start Date Stop Date Notes valACYclovir HCl 1 GM 2 tablet Orally tw ice a day for one day for 5 days 03/26/2021 Next Appt Details Provider Name:Juanito mckinney, 10/13/2025 08:00:00 AM, [address] [place] [address], Suite [facility], [place], [place], [phone], Provider Name:Juanito mckinney, 10/20/2025 02:30:00 PM, [address] [place] [address], Suite [facility], [place], [place], [phone], Progress Notes * Lupe WAHL ADOB:1965 (58 yo F)Acc No.[id number]:09/19/2023 Patient: N Lupe cee :1965 A ge:58 Y S ex:Female Address:[facility] [address], [place] [address] * Refills Refill valACYclovir HCl Tablet, 1 GM, Orally, 10, 2 tablet, twice a day for one day, 5 days, Refills=1 * true * Date: Generated for Floyd jolly/Eyad/Suhasitting on: 0 01/21/2025 12:31 PM EDT
--- OUTSIDE RECORDS SUMMARY | 2024-07-18 03:45 | XMS_ITS ---
Author Organization Juanito Clements MD Address [address] [place], [place] [id number] Care Team Providers Care Corporate Strategy Analyst Name Role Phone Juanito Clements Primary Care Provider Results Component Value Reference Range Notes Complete Blood Count Auto Di ff Reviewed date:07/18/2024 04:44:43 PM Interpretation: Performing Lab:[facility], [address] [place] [phone] Notes/Report: White Blood Count 4.1 4.8-10.8 X10*3/uL Red Blood Count 4.27 4.20-5.50 X10*6/uL Hemoglobin 12.7 12.0-16.0 g/dl Hematocrit 38.2 37.0-47.0 % Mean Corpuscular Volume 89.5 80.0-98.0 fL Mean Corpuscular Hemoglobin 29.7 27.0-33.0 pg Mean Corpuscular HGB Conc 33.2 31.0-35.0 g/dl Red Cell Distribution Width 12.5 11.0-16.0 % Platelet Count 290 160-400 X10*3/uL Mean Platelet Volume 10.3 9.4-12.3 fL Neutrophils Percent Auto 50.3 45-73 % Imm Gran Pct Auto 0.2 0.0-0.4 % Lymphocytes Percent Auto 39.4 20-40 % Monocytes Percent Auto 7.4 2-11 % Eosinophils Percent Auto 1.7 0-4 % Basophils Percent Auto 1.0 0-2 % NRBC Pct Auto 0.0 0.0-0.2 /100WBC Neutrophils Absolute Auto 2.0 2.0-8.3 x10*3/u L Imm Gran Abs Auto 0.01 0.00-0.03 X10*3/uL Lymphocytes Absolute Auto 1.6 1.2-4.9 X10*3/u L Monocytes Absolute Auto 0.3 0.1-1.2 X10*3/uL Eosinophils Absolute Auto 0.1 0.0-0.4 X10*3/u L Basophils Absolute Auto 0.0 0.0-0.2 X10*3/uL NRBC Abs Auto 0.000 0.0-0.012 X10*3/uL Comprehensive [place]. Panel Fa st Reviewed date:07/18/2024 04:44:10 PM Interpretation: Performing Lab:[facility], [address] [place] [phone] Notes/Report: Sodium 142 135-145 mmol/L Potassium 4.2 3.3-5.1 mmol/L Chloride 108 96-108 mmol/L Carbon Dioxide 29 22-29 mmol/L Anion Gap 9 12-20 Blood Urea Nitrogen 14 9-16 mg/dL Creatinine 0.80 0.5-1.4 mg/dL Estimated Glomerular Filt Rate > 60 Chronic Kidney Disease: Estimated GFR < 60 mL/min/1.73m2 Severe Kidney Disease: Estimated GFR < 15 mL/min/1.73m2 Glucose Fasting 93 60-99 mg/dL Calcium 9.4 8.4-10.2 mg/dL Bilirubin Total 0.7 0.0-1.0 mg/dL Aspartate Amino Transferase 15 5-31 U/L Alanine Aminotransferase 17 0-31 U/L Total Protein 7.0 6.5-8.0 g/dL Albumin Level 4.2 3.5-5.0 g/dL Alkaline Phosphatase 57 39-117 U/L Lipid Panel Reviewed date:07/18/2024 04:22:13 PM Interpretation: Performing Lab:[facility], [address] [place] [phone] Notes/Report: Triglycerides 81 <150 mg/dL Desirable Triglyceride: less than 150 mg/dL Borderline High Triglyceride 150-199 mg/dL High Triglyceride: 200-499 mg/dL Very High Triglyceride: greater than or equal to 5OO mg/dL Cholesterol 231 <200 mg/dL Desirable Cholesterol: less than 200 mg/dL Borderline High Cholesterol: 200-239 mg/dL High Cholesterol: greater than 239 mg/dL LDL Cholesterol Calculated 164 <100 mg/dL Desirable LDL: less than 100 mg/dL Near Optimal/Above Optimal LDL: 110-129 mg/dL Borderline High LDL: 130-159 mg/dL High LDL: 160-189 mg/dL Very High LDL: greater than or equal to 190 mg/dL HDL Cholesterol 51 >40 mg/dL Desirable HDL: greater than 40 mg/dL Note: This HDL assay may give artificially low results in patients with liver disease. Vitamin D 25-OH Total Reviewed date:07/18/2024 04:22:36 PM Interpretation: Performing Lab:[facility], [address] [place] [phone] Notes/Report: Vitamin D 25-OH Total 48.3 >30 ng/mL Health Based Reference Values* < 20 ng/mL Deficient 20-30 ng/mL Insufficient > 30 ng/mL Sufficient *Marilou PLUNKETT. N Engl J Med. 2007;357:266-280 There is no well-established upper level of normal vitamin D levels. Some laboratories use 50 ng/mL as an upper limit of normal. However, toxicity is patient-dependent and may occur at any level. Careful correlation with the patient's presentation is necessary and, if there is concern for vitamin D toxicity, treatment should be considered irrespective of the serum level. Care must be taken in interpreting Vitamin D results from different laboratories and methodologies. Published data demonstrated that results from patients undergoing hemodialysis may show a negative bias when tested with various automated 25-OH vitamin D assays when compared to LC-MS/MS. When testing samples from patients whose predominant form of Vitamin D is Vitamin D2, such as patients receiving Vitamin D2 supplementation, results that are subtherapeutic should be confirmed with another method such as LC-MS/MS. UA ClnCatch+Micro w/rflx Cul t Reviewed date:07/20/2024 09:36:50 AM Interpretation: Performing Lab:[facility], [address] [place] [phone] Notes/Report: Urine, Clean Catch Color Urine Dark Yellow Appearance Urine Clear PH 6.0 5.0-9.0 Glucose Urine UA Negative Negative mg/dL Urine Blood Negative Negative Specific [place] - Urine 1.025 1.005-1.025 Urine Protein Negative Neg-Trace mg/dL Urine Ketones Negative Negative mg/dL Nitrite Urine Negative Negative Leukocyte Esterase Urine Negative Negative RBC Urine 0-2 0-2 /HPF WBC Urine 0-5 0-5 /HPF Squamous Epithelial Cell Urine 0-2 0-2 /HPF Bacteria Urine None Seen None Seen Hyaline Casts Urine 0-2 0-2 /LPF REASON FOR VISIT FASTING LABS Encounters Encounter Location Date Provider Diagnosis Juanito Clements MD [address] [place] [address] Drive [address] [place] [phone] 07/18/2024 Juanito Clements Blood tests for rout ine general physical examination Z00.00 ; Vitamin D deficiency E55.9 and Atherosclerosis I70.90 Assessments Encounter Date Diagnosis (ICD Code) Assessment Notes Treatment Notes Treatment Clinical Notes Section Notes 07/18/2024 Blood tests for routine general physical examination (ICD-10 - Z00.00) 07/18/2024 Vitamin D deficiency (ICD-10 - E55.9) 07/18/2024 Atherosclerosis (ICD-10 - I70.90) Plan Of Treatment Next Appt Details Provider Name:Juanito Copeland ier, 10/13/2025 08:00:00 AM, [address] [place] [address], Suite [facility], [place], [place], [phone], Provider Name:Juanito Copeland ier, 10/20/2025 02:30:00 PM, [address] [place] [address], Suite [facility], [place], [place], [phone], Progress Notes * Lupe WAHL ADOB:1965 (59 yo F)Acc No.[id number]:07/18/2024 Progress Note Patient: Lupe ACUÑA Provider: Trudy Clements MD :1965 A ge:59 Y S ex:Female Date:07/18/2024 Address:[facility] [address], [facility] Subjective: * Chief Complaints: * 1 . FASTING LABS. * Medical History: Objective: * Vitals: Assessment: * Assessment: 1. B lood tests for routine general physical examination - Z00.00 (Primary) 2 .?Vitamin D deficiency - E55.9 3 . A therosclerosis - I70.90 ? Plan: * Treatment: 2. V itamin D deficiency L AB: Complete Blood Count Auto Diff (Collection Date & Time - 07/18/2024 07:45 AM) L AB: Comprehensive [place]. Panel Fast (Collection Date & Time - 07/18/2024 07:45 AM) L AB: Lipid Panel (Collection Date & Time - 07/18/2024 07:45 AM) L AB: Vitamin D 25-OH Total (Collection Date & Time - 07/18/2024 07:45 AM) L AB: UA ClnCatch+Micro w/rflx Cult (Collection Date & Time - 07/18/2024 07:45 AM) 3. A therosclerosis L AB: Complete Blood Count Auto Diff (Collection Date & Time - 07/18/2024 07:45 AM) L AB: Comprehensive [place]. Panel Fast (Collection Date & Time - 07/18/2024 07:45 AM) L AB: Lipid Panel (Collection Date & Time - 07/18/2024 07:45 AM) L AB: Vitamin D 25-OH Total (Collection Date & Time - 07/18/2024 07:45 AM) L AB: UA ClnCatch+Micro w/rflx Cult (Collection Date & Time - 07/18/2024 07:45 AM) * Procedure Codes: 3 6415 VENIPUNCT, ROUTINE* * * The named appointment provid er may or may not be the originator of this progress note, and it is not deemed complete until electronically signed by the appointment provider. Sign off status: Pending * Provider: Trudy Clements MD Date: 0 07/18/2024 Generated for Floyd jolly/Eyad/Suhasitting on: 0 01/21/2025 12:30 PM EDT
--- OUTSIDE RECORDS SUMMARY | 2024-10-15 09:45 | XMS_ITS ---
Author Organization Juanito Clements MD Address [address] [place], [place] [id number] Care Team Providers Care Carpenter Labor Supervisor Name Role Phone Juanito Clements Primary Care Provider Allergies No Known Allergies REASON FOR VISIT ANNUAL EXAM Medications Medication SIG (Take, Route, Frequency, Duration) Notes Start Date End Date Status PARoxetine HCl 20 MG TAKE 1 TABLET BY [facility] EVERY DAY IN THE MORNING for 90 Not-Taking Diclofenac Potassium 50 MG 1 tablet with food or milk as needed Orally Twice a day Not-Taking buPROPion HCl ER (XL) 300 MG TAKE 1 TABLET BY MOUTH EVERY DAY IN THE MORNING FOR 90 DAYS for 90 Active valACYclovir HCl 1 GM 2 tablet Orally tw ice a day for one day for 5 days 03/26/2021 Active Ranolazine ER 500 MG 1 tablet Orally Twi ce a day Active Atorvastatin Calcium 40 MG 1 tablet Orally Once a day for 30 days 10/15/2024 Active Nitrostat 0.4 MG as directed Sublingu al every 4 mins up to 3 times for 10 days 02/04/2021 Not-Taking Social History Tobacco Use: Social History Observation Description Date Details (start date - stop date) Never Smoker NA - NA Tobacco Use/Smoking Question Answer Notes Patient is a nonsmoker Additional Findings: Tobacco Non-User Cu rrent non-smoker, currently using no form of tobacco Alcohol Screen Question Answer Notes Did you have a drink containing alcohol in the p ast year? No Points 0 Interpretation Negative Vital Signs Blood pressure systolic 102 mm Hg 10/16/19 25 Blood pressure diastolic 60 mm Hg 025 Height 67 in 10/15/2024 Weight 175 lbs 10/15/2024 BMI 27.41 kg/m2 10/15/2024 Encounters Encounter Location Date Provider Diagnosis Juanito Clements MD [address] [place] [address] [place] [phone] 10/15/2024 Juanito Clements Annual physical exam Z00.00 and Atherosclerosis I70.90 Assessments Encounter Date Diagnosis (ICD Code) Assessment Notes Treatment Notes Treatment Clinical Notes Section Notes 10/15/2024 Annual physical exam (ICD-10 - Z00.00) Labs reviewed and discussed with patient 10/15/2024 Atherosclerosis (ICD-10 - I70.90) she had an us of abdomen that showed atherrosclerosis of the aorta. have discussed the significance and suggested statins. she is agreeable to this Plan Of Treatment Medication Medication Name Sig Start Date Stop Date Notes Atorvastatin Calcium 40 MG 1 tablet Oral ly Once a day for 30 days 10/15/2024 Treatment Notes Assessment Notes Annual physical exam Labs reviewed and d iscussed with patient Atherosclerosis she had an us of abd omen that showed atherrosclerosis of the aorta. have discussed the significance and suggested statins. she is agreeable to this Next Appt Details Follow Up: 1 Year, Reason: Provider Name:Juanito mckinney, 10/13/2025 08:00:00 AM, [address] [place] [address], Suite [facility], [place], [place], [phone], Provider Name:Juanito mckinney, 10/20/2025 02:30:00 PM, [address] [place] [address], Suite [facility], [place], [place], [phone], Progress Notes * Lupe WAHL ADOB:1965 (59 yo F)Acc No.[id number]:10/15/2024 Progress Notes Patient: Lupe ACUÑA Provider: Trudy Clements MD :1965 A ge:59 Y S ex:Female Date:10/15/2024 Address:[address] [place] [address] , [place] [id number] Subjective: * Chief Complaints: * 1 . ANNUAL EXAM. * HPI: D epression Screening: PHQ-9 L ittle interest or pleasure in doing things N ot at all, F eeling down, depressed, or hopeless N ot at all, T rouble falling or staying asleep, or sleeping too much N ot at all, F eeling tired or having little energy N ot at all, P oor appetite or overeating N ot at all, F eeling bad about yourself or that you are a failure, or have let yourself or your family down N ot at all, T rouble concentrating on things, such as reading the newspaper or watching television N ot at all, M oving or speaking so slowly that other people could have noticed; or the opposite, being so fidgety or restless that you have been moving around a lot more than usual N ot at all, T houghts that you would be better off or of hurting yourself in some way N ot at all, T otal Score 0 . I nterpretation and Intervention D epression Screening Findings N egative, F ollow-Up for Depression : review of PHQ-9 found negative result, no follow-up needed. C ommunication Needs: Communication Needs D oes the patient have a hearing impairment N o, D oes the patient have a vision impairment? Y es, I f yes, what is the vision impairment? G lasses, D oes the patient have a cognition impairment? N o. F all Risk: History H ave you had any falls with injury in the past year? N o, H ave you had two or more falls in the past year? N o. S ANNITA Questions: SDOH Questions I n the past year have you been worried about losing housing? N o, I n the past year have you or any family members you live with been unable to get any of the following when it was really needed? Check all that apply: N one. S ymptom(s): patient is a 59 yo female here for annual visit with review of recent labs and follow up of chronic issues. * ROS: G eneral/Constitutional: Change in appetite d enies. C hills d enies. F ever d enies. O phthalmologic: Blurred vision d enies. D ischarge d enies. P ain d enies. E NT: Decreased hearing d enies. S ore throat d enies.?Swollen glands d enies. E ndocrine: Cold intolerance d enies. E xcessive thirst d enies. H eat intolerance d enies. W eight loss d enies. R espiratory: Cough d enies. S hortness of breath at rest d enies. S hortness of breath with exertion d enies. W heezing d enies. C ardiovascular: Chest pain at rest d enies. C hest pain with exertion?denies. I rregular heartbeat d enies. S hortness of breath d enies. ? G astrointestinal: Abdominal pain d enies. C hange in bowel habits d enies. D iarrhea d enies. N ausea d enies. R ectal bleeding d enies. V omiting d enies . G enitourinary: Blood in urine d enies. D ifficulty urinating d enies. F requent urination d enies. U rinary incontinence D enies. M usculoskeletal: Painful joints d enies. W eakness d enies. ? S kin: Dry skin d enies. I tching d enies. D enies?Mole(s), changes in moles, new moles or any lesions of concern. D enies P hotosensitivity. R andrew d enies. N eurologic: Dizziness d enies. F ainting d enies. H eadache?denies. * Medical History: P anic attack, Panic attack, Colonoscopy 07/08/20 - Dr. Almanza (repeat 10 yrs). * Family History: F ather: 82 yrs. M other: alive 89 yrs, diagnosed with Hypertension. 1 brother(s) . 2 daughter(s) . . No pertinent family medical history, Denies mental health/substance abuse family history bROTHER IS AN ALCOHOLIC 1 brother. * Social History: T obacco Use: T obacco Use/Smoking P atient is a n onsmoker, A dditional Findings: Tobacco Non-User C urrent non-smoker, currently using no form of tobacco. D rugs/Alcohol: A lcohol Screen D id you have a drink containing alcohol in the past year? N o, P oints 0 , I nterpretation N egative. M iscellaneous: C affeine: yes, frequency:. Children: yes. 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 Home smoke detector use: yes. Housing: owning. Living with: spouse. Occupation: weeks/months/years, works full-time. Travel outside of the [place]: yes, [place]. * Medications: T aking Ranolazine ER 500 MG Tablet Extended Release 12 Hour 1 tablet Orally Twice a day , Taking valACYclovir HCl 1 GM Tablet 2 tablet Orally twice a day for one day , Taking buPROPion HCl ER (XL) 300 MG Tablet Extended Release 24 Hour TAKE 1 TABLET BY MOUTH EVERY DAY IN THE MORNING FOR 90 DAYS , Not-Taking/PRN Diclofenac Potassium 50 MG Tablet 1 tablet with food or milk as needed Orally Twice a day , Not- Taking/PRN PARoxetine HCl 20 MG Tablet TAKE 1 TABLET BY MOUTH EVERY DAY IN THE MORNING , Not-Taking/PRN Nitrostat 0.4 MG Tablet Sublingual as directed Sublingual every 4 mins up to 3 times , Medication List reviewed and reconciled with the patient * Allergies: N .K.D.A. Objective: * Vitals: H t: 67, Wt: 175, BMI:27.41, BP:102/60, Wt-k.38. * P ast Orders: L ab:Complete Blood Count Auto Diff (Order Date - 07/18/2024) (Collection Date & Time - 07/18/2024 07:45 AM) Value Reference Range White Blood Count 4.1 L 4.8-10.8 - X10*3/uL Red Blood Count 4.27 4.20-5.50 - X10*6/uL Hemoglobin 12.7 12.0-16.0 - g/dl Hematocrit 38.2 37.0-47.0 - % Mean Corpuscular Volume 89.5 80.0-98.0 - fL Mean Corpuscular Hemoglobin 29.7 27.0-33.0 - pg Mean Corpuscular HGB Conc 33.2 31.0-35.0 - g/ dl Red Cell Distribution Width 12.5 11.0-16.0 - % Platelet Count 290 160-400 - X10*3/uL Mean Platelet Volume 10.3 9.4-12.3 - fL Neutrophils Percent Auto 50.3 45-73 - % Imm Gran Pct Auto 0.2 0.0-0.4 - % Lymphocytes Percent Auto 39.4 20-40 - % Monocytes Percent Auto 7.4 2-11 - % Eosinophils Percent Auto 1.7 0-4 - % Basophils Percent Auto 1.0 0-2 - % NRBC Pct Auto 0.0 0.0-0.2 - /100WBC Neutrophils Absolute Auto 2.0 2.0-8.3 - x10* 3/uL Imm Gran Abs Auto 0.01 0.00-0.03 - X10*3/uL Lymphocytes Absolute Auto 1.6 1.2-4.9 - X10* 3/uL Monocytes Absolute Auto 0.3 0.1-1.2 - X10*3/ uL Eosinophils Absolute Auto 0.1 0.0-0.4 - X10* 3/uL Basophils Absolute Auto 0.0 0.0-0.2 - X10*3/ uL NRBC Abs Auto 0.000 0.0-0.012 - X10*3/uL L ab:Comprehensive [place]. Panel Fast (Order Date - 07/18/2024) (Collection Date & Time - 07/18/2024 07:45 AM) Value Reference Range Sodium 142 135-145 - mmol/L Bilirubin Total 0.7 0.0-1.0 - mg/dL Aspartate Amino Transferase 15 5-31 - U/L Alanine Aminotransferase 17 0-31 - U/L Total Protein 7.0 6.5-8.0 - g/dL Albumin Level 4.2 3.5-5.0 - g/dL Alkaline Phosphatase 57 39-117 - U/L Potassium 4.2 3.3-5.1 - mmol/L Chloride 108 96-108 - mmol/L Carbon Dioxide 29 22-29 - mmol/L Anion Gap 9 L 12-20 - Blood Urea Nitrogen 14 9-16 - mg/dL Creatinine 0.80 0.5-1.4 - mg/dL Estimated Glomerular Filt Rate > 60 - Glucose Fasting 93 60-99 - mg/dL Calcium 9.4 8.4-10.2 - mg/dL L ab:Lipid Panel (Order Date - 07/18/2024) (Collection Date & Time - 07/18/2024 07:45 AM) Value Reference Range Triglycerides 81 <150 - mg/dL Cholesterol 231 H <200 - mg/dL LDL Cholesterol Calculated 164 H <100 - mg/dL HDL Cholesterol 51 >40 - mg/dL L ab:Vitamin D 25-OH Total (Order Date - 07/18/2024) (Collection Date & Time - 07/18/2024 07:45 AM) Value Reference Range Vitamin D 25-OH Total 48.3 >30 - ng/mL L ab:UA ClnCatch+Micro w/rflx Cult (Order Date - 07/18/2024) (Collection Date & Time - 07/18/2024 07:45 AM) Value Reference Range Color Urine Dark Yellow - Appearance Urine Clear - PH 6.0 5.0-9.0 - Glucose Urine UA Negative Negative - mg/dL Urine Blood Negative Negative - Specific [place] - Urine 1.025 1.005-1.025 - Urine Protein Negative Neg-Trace - mg/dL Urine Ketones Negative Negative - mg/dL Nitrite Urine Negative Negative - Leukocyte Esterase Urine Negative Negative - RBC Urine 0-2 0-2 - /HPF WBC Urine 0-5 0-5 - /HPF Squamous Epithelial Cell Urine 0-2 0-2 - /HP F Bacteria Urine None Seen None Seen - Hyaline Casts Urine 0-2 0-2 - /LPF * Examination: G eneral Examination: GENERAL APPEARANCE: w ell developed, well nourished, in no acute distress. HEAD: n ormocephalic, atraumatic. EYES: p upils equal, round, reactive to light and accommodation, sclera non-icteric. EARS: n ormal. ORAL CAVITY: m ucosa moist. THROAT: c lear. NECK/THYROID: n carroll supple, full range of motion, no cervical lymphadenopathy, no bruits. SKIN: w arm and dry, no suspicious lesions. HEART: r egular rate and rhythm, S1, S2 normal, no murmurs.? LUNGS: c lear to auscultation bilaterally. BREASTS: N o mass, no lump. ABDOMEN: s oft, nontender, nondistended, bowel sounds present, normal, no organomegaly , no masses palpable. RECTAL EXAM: d one by clearance coordinator. FEMALE GENITOURINARY: d one by clearance coordinator. EXTREMITIES: n o clubbing, cyanosis, or edema. NEUROLOGIC: n onfocal, motor strength normal upper and lower extremities, sensory exam intact. Assessment: * Assessment: 1. A nnual physical exam - Z00.00 (Primary) 2 . A therosclerosis - I70.90? Plan: * Treatment: 2. A therosclerosis Start Atorvastatin Calcium Tablet, 40 MG, 1 tablet, Orally, Once a day, 30 days, 30, Refills 11.? L AB: Liver Panel (Ordered for 01/15/2025) (Collection Date & Time - 01/21/2025 07:30 AM) L AB: Lipid Panel (Ordered for 01/15/2025) (Collection Date & Time - 01/21/2025 07:30 AM) Notes: she had an us of abdomen that showed atherrosclerosis of the aorta. have discussed the significance and suggested statins. she is agreeable to this * Follow Up: 1 Year * * The named appointment provid er may or may not be the originator of this progress note, and it is not deemed complete until electronically signed by the appointment provider. Sign off status: Pending * Provider: Trudy Clements MD Date: 0 10/15/2024 Generated for Floyd jolly/Eyad/Slimeransmitting on: 0 01/21/2025 12:31 PM EDT History and Physical Notes * HPI (History of Present Illness) Category Sub-Category Detail Notes Category Not es Symptom(s) patient is a 59 yo female here for annual visit with review of recent labs and follow up of chronic issues Depression Screening PHQ-9 Little inte rest or pleasure in doing things: Not at all Feeling down, depressed, or hopeless: No t at all Trouble falling or staying asleep, or sl eeping too much: Not at all Feeling tired or having little energy: N ot at all Poor appetite or overeating: Not at all Feeling bad about yourself o r that you are a failure, or have let yourself or your family down: Not at all Trouble concentrating on thi ngs, such as reading the newspaper or watching television: Not at all Moving or speaking so slowly that other people could have noticed; or the opposite, being so fidgety or restless that you have been moving around a lot more than usual: Not at all Thoughts that you would be b holley off or of hurting yourself in some way: Not at all Total Score: 0 Interpretation and Intervention Depression Grabiel campoverde Findings: Negative Follow-Up for Depression: : review of PH Q-9 found negative result, no follow-up needed SDOH Questions SDOH Questions In the past year have you been worried about losing housing?: No In the past year have you or any family members you live with been unable to get any of the following when it was really needed? Check all that apply:: None Fall Risk History Have you had any falls with injury i n the past year?: No Have you had two or more falls in the st year?: No Communication Needs Communication Needs Does the patient have a hearing impairment: No Does the patient have a vision impairmen t?: Yes If yes, what is the vision impairment?: Glasses Does the patient have a cognition impair ment?: No Examination Category Sub-Category Detail Notes Category Not es General Examination GENERAL APPEARANCE: well dev eloped, well nourished, in no acute distress HEAD: normocephalic, atrau matic EYES: pupils equal, round, reactive to light and accommodation, sclera non-icteric EARS: normal THROAT: clear NECK/THYROID: neck supple, full ra nge of motion, no cervical lymphadenopathy, no bruits HEART: regular rate and rhy thm, S1, S2 normal, no murmurs LUNGS: clear to auscultatio n bilaterally ABDOMEN: soft, nontender, non distended, bowel sounds present, normal, no organomegaly , no masses palpable NEUROLOGIC: nonfocal, motor stre ngth normal upper and lower extremities, sensory exam intact SKIN: warm and dry, no erlin picious lesions EXTREMITIES: no clubbing, cyanosi s, or edema BREASTS: No mass, no lump RECTAL EXAM: done by clearance coordinator FEMALE GENITOURINARY: done by clearance coordinator ORAL CAVITY: mucosa moist
--- OUTSIDE RECORDS SUMMARY | 2024-12-24 10:30 | XMS_ITS ---
Author Organization [facility] Address [address] [facility] [place] [address] Care Team Providers Care Scowman Name Role Phone Juanito Clements MD Primary Care Provider Gloria Carr [phone] Medications Medication SIG (Take, Route, Frequency, Duration) Notes Start Date End Date Status Paxil 20 MG 1 tablet in the morn ing Orally Once a day Not-Taking LamISIL 250mg 1 tablet for 7 days, stop for 3 weeks repeat cycle orally daily; Duration: 90 days 02/02/2021 Not-Taking Wellbutrin Active Ciclopirox 8 % 1 application [employer] ally Once a day; Duration: 30 06/20/2023 Active Terbinafine HCl 250 MG 1 tablet Orally O nce a day for 7 days days then stop for 3 weeks repeat cycle; Duration: 90 days 05/17/2024 Active Ranolazine ER 500 MG 1 tablet Orally Twi ce a day Active Problems No Known Problems Encounters Encounter Location Date Provider [facility] [address] [place] [address] 12/24/2024 Gloria Montano Plan Of Treatment Next Appt Details Provider Name:Gloria Montano , 04/30/2025 02:30:00 PM, [address] [place] [address] [facility], [address], Progress Notes * Ian WAHLB:1965 ( 59 yo F)Acc No.[id number]:12/24/2024 Progress Note Patient: Melvi JENSEN Lupe Provider: Virgie Montano DPM :1965 A ge:59 Y S ex:Female Date:12/24/2024 Address:[address] [place] [address] , [place] , [place] Pcp:Juanito Clements MD Subjective: * Chief Complaints: * * Medical History: * Medications: T aking Ranolazine ER 500 MG Tablet Extended Release 12 Hour 1 tablet Orally Twice a day , Taking Wellbutrin , Taking Ciclopirox 8 % Solution 1 application Externally Once a day , Taking Terbinafine HCl 250 MG Tablet 1 tablet Orally Once a day for 7 days days then stop for 3 weeks repeat cycle , Not-Taking/PRN Paxil 20 MG Tablet 1 tablet in the morning Orally Once a day , Not-Taking/PRN LamISIL 250mg tablet 1 tablet for 7 days,stop for 3 weeks repeat cycle orally daily Objective: * Vitals: Assessment: Plan: * Treatment: * Images: * The named appointment provid er may or may not be the originator of this progress note, and it is not deemed complete until electronically signed by the appointment provider. Sign off status: Pending * Provider: Virgie Montano DPM Date: 0 12/24/2024 Generated for Floyd jolly/Eyad/Suhasitting on: 01/21/2025 12:31 PM EDT
--- OUTSIDE RECORDS SUMMARY | 2025-01-21 03:30 | XMS_ITS ---
Author Organization Juanito Clements MD Address [address] [place], [place] [id number] Care Team Providers Care Net Application Support Specialist Name Role Phone Juanito Clements Primary Care Provider [phone] Results Component Value Reference Range Notes Liver Panel Reviewed date:01/21/2025 11:53:17 AM Interpretation: Performing Lab:[facility], [address] [place] [phone] Notes/Report: Bilirubin Total 0.5 0.0-1.0 mg/dL Bilirubin Direct 0.2 0.0-0.5 mg/dL Aspartate Amino Transferase 16 5-31 U/L Alanine Aminotransferase 16 0-31 U/L Total Protein 6.7 6.5-8.0 g/dL Albumin Level 4.3 3.5-5.0 g/dL Alkaline Phosphatase 53 39-117 U/L Lipid Panel Reviewed date:01/21/2025 11:53:25 AM Interpretation: Performing Lab:[facility], [address] [place] [phone] Notes/Report: Triglycerides 68 <150 mg/dL Desirable Triglyceride: less than 150 mg/dL Borderline High Triglyceride 150-199 mg/dL High Triglyceride: 200-499 mg/dL Very High Triglyceride: greater than or equal to 5OO mg/dL Cholesterol 195 <200 mg/dL Desirable Cholesterol: less than 200 mg/dL Borderline High Cholesterol: 200-239 mg/dL High Cholesterol: greater than 239 mg/dL LDL Cholesterol Calculated 144 <100 mg/dL Desirable LDL: less than 100 mg/dL Near Optimal/Above Optimal LDL: 110-129 mg/dL Borderline High LDL: 130-159 mg/dL High LDL: 160-189 mg/dL Very High LDL: greater than or equal to 190 mg/dL HDL Cholesterol 38 >40 mg/dL Desirable HDL: greater than 40 mg/dL Note: This HDL assay may give artificially low results in patients with liver disease. REASON FOR VISIT fasting lipids/liver Encounters Encounter Location Date Provider Diagnosis Juanito Clements MD [address] [place] [address] [address] [place] [phone] 01/21/2025 Juanito Clements Atherosclerosis I70. 90 Assessments Encounter Date Diagnosis (ICD Code) Assessment Notes Treatment Notes Treatment Clinical Notes Section Notes 01/21/2025 Atherosclerosis (ICD-10 - I70.90) Plan Of Treatment Next Appt Details Provider Name:Juanito mckinney, 10/13/2025 08:00:00 AM, [address] [place] [address], [address], [phone], Provider Name:Juanito mckinney, 10/20/2025 02:30:00 PM, [address] [place] [address], Suite [facility], [place], [place], [phone], Progress Notes * Lupe WAHL ADOB:1965 (59 yo F)Acc No.[id number]:01/21/2025 Progress Note Patient: Lupe ACUÑA Provider: Trudy Clements MD :1965 A ge:59 Y S ex:Female Date:01/21/2025 Address:[facility] [address], [place] [facility] Subjective: * Chief Complaints: * 1 . Fasting lipids/liver. * Medical History: Objective: * Vitals: Assessment: * Assessment: 1. A therosclerosis - I70.90 Plan: * Treatment: * Procedure Codes: 3 6415 VENIPUNCT, ROUTINE* * * The named appointment provid er may or may not be the originator of this progress note, and it is not deemed complete until electronically signed by the appointment provider. Sign off status: Pending * Provider: Trudy Clements MD Date: 0 01/21/2025 Generated for Floyd jolly/Eyad/Suhasitting on: 0 01/21/2025 12:31 PM EDT
[2025-01-21 11:39] LABS: Alanine Aminotransferase 16 U/L (0-31); Albumin Level 4.3 g/dL (3.5-5.0); Alkaline Phosphatase 53 U/L (39-117); Aspartate Amino Transferase 16 U/L (5-31); Cholesterol 195 mg/dL (<200); HDL Cholesterol 38 mg/dL (>40); Total Protein 6.7 g/dL (6.5-8.0); Triglycerides 68 mg/dL (<150)
--- OUTSIDE RECORDS SUMMARY | 2025-01-21 12:31 | XMS_ITS | Clinical Summary ---
Author Organization [facility] Address [address] [place] [address] Care Team Providers Care Back Tacker Name Role Phone Juanito Clements MD Primary Care Provider [phone] Allergies Active Allergy Reactions Criticality Noted Date Comments Other Hives,Shortness Of Breath,Rash/Dermatitis High 01/20/2022 Dust mites , Cats , seasonal Medications budesonide-form oterol (SYMBICORT) 160-4.5 MCG/ACT inhaler 01/18/2022 Active PARoxetine (Paxil) 20 MG tablet 1 tablet in the morning 03/04/2021 Active Active Problems Problem Noted Date Diagnosed Date Non-cardiac chest pain 01/20/2022 Assessment & Plan (01/20/2022 3:07 PM EDT): One year of symptoms Exertional induced chest burning Initially started when she was doing marathon training and HIIT Now even if she goes on a long walk Significant negative cardiac testing at [facility]: stress test, cath Negative pulmonary evaluation No change with albuterol inhaler of 3 week PPI course ? Improvement with gaviscon but she is not sure- and it was expensive Plan: 1. ddx for atypical reflux/non-cardiac chest pain includes esophageal spasm, non-acid reflux, acid reflux, eosinophilic esophagitis. 2. Will start with EGD 3. If EGD wnl, will do pH/impedance testing and have patient elicit symptoms with exertion The indications, alternatives and the upper endoscopy procedure were thoroughly explained. There is no contraindication to upper endoscopy. All questions were answered. The potential risks including bleeding, infection, and perforation were also explained. Colon cancer screening 01/20/2022 Assessment & Plan (01/20/2022 3:08 PM EDT): No polyps reportedly on 2020 cscope I can see the [facility] pre-colon visit but not the actual report At follow up will see if she can complete [employer] HIPAA release form so can have the report scanned into our system Social History Tobacco Use Types Packs/Day Years Used Date Smoking Tobacco: Never Smokeless Tobacco: Never Alcohol Use Standard Drinks/Week Comments Yes 0 (1 standard drink = 0.6 oz pur e alcohol) socially Comments Unknown Sex and Gender Information Value Date Recorded Sex Assigned at Female 06/02/2023 1:59 PM EST Legal Sex Female 1:34 PM EDT Gender Identity Female 06/02/2023 1:59 PM EST Sexual Orientation Heterosexual (straight) 06/02 1:59 PM EST Last Filed Vital Signs Vital Sign Reading Time Taken Comments Blood Pressure 129/78 01/20/2022 2:27 PM EDT Pulse 75 01/20/2022 2:27 PM EDT Temperature - - Respiratory Rate - - Oxygen Saturation 97% 01/20/2022 2:27 PM EDT Inhaled Oxygen Concentration - - Weight 86.2 kg (190 lb) 01/20/2022 2:27 PM EDT P er pt. Height 170.2 cm (5' 7 ) 01/20/2022 2:27 PM EDT Body Mass Index 29.76 01/20/2022 2:27 PM EDT Plan of Treatment Health Maintenance Due Date Last Done Comments Hepatitis C Virus Screening 1965 HIV Screening 07/05/1979 DTaP/Tdap/Td Vaccines (1 - Tdap) 1985 Hepatitis B Vaccines (1 of 3 - 19+ 3-dose series) 06/22 Pap Smear (Ages 21-65) 07/05/1987 Mammogram 2006 Colonoscopy 07/05/2011 Pneumococcal Vaccines 50+ (1 of 1 - PCV) 2016 Zoster (Shingles) Vaccine (1 of 2) 2016 Influenza Vaccine 11/22/2024 COVID-19 Vaccine ( - season) 2024 [place] [address] [facility] [place] [address] [facility] Care Teams Back Tacker Relationship Specialty Start Date End Date Juanito Clements MD [address] [place] [address] [place] [address] PCP - General Internal Medicine 01/04/22
--- OUTSIDE RECORDS SUMMARY | 2025-01-21 12:31 | XMS_ITS | Clinical Summary ---
Author Organization [facility] Address [address] [place] [address] Care Team Providers Care Marketing Sales Consultant Name Role Phone Juanito Clements MD Primary Care Provider [phone] Surgical History Surgery Date Site/Laterality Comments APPENDECTOMY PROCEDURE:APPENDECTOMY COLONOSCOPY PROCEDURE:COLONOSCOPY ENDOMETRIAL ABLATION PROCEDURE:ENDOMETRIAL ABLATION UPPER GASTROINTESTINAL ENDOSCOPY 03/30/2022 N/A PROCEDURE:UPPER GASTROINTESTINAL ENDOSCOPY;COMMENT:Procedure: UPPER ENDOSCOPY-EGD; Surgeon: August Mcdaniel MD; Location: [facility]; Service: Gastroenterology; Laterality: N/A; Medical History Medical History Date Comments Anxiety DX:Anxiety Depression DX:Depression Indigestion DX:Indigestion KAYLA on CPAP DX:KAYLA on CPAP Social History Tobacco Use Types Packs/Day Years Used Date Smoking Tobacco: Never Smokeless Tobacco: Never Alcohol Use Standard Drinks/Week Comments Yes 0 (1 standard drink = 0.6 oz pur e alcohol) Comments Unknown Sex and Gender Information Value Date Recorded Sex Assigned at Not on file Legal Sex Female 8:48 PM EST Gender Identity Not on file Sexual Orientation Not on file Obstetrics History Plan of Treatment Health Maintenance Due Date Last Done Comments Breast Cancer Screening 1965 DTaP,Tdap,and Td Vaccines (1 - Tdap) 1985 Hepatitis B Vaccines (1 of 3 - 19+ 3-dose series) 1985 Cervical Cancer Screening: P ap Smear 07/05/1987 Pneumococcal Vaccine: 50+ Ye ars (1 of 1 - PCV) 2016 Zoster Vaccines (1 of 2) 2016 Colorectal Cancer Screening: Colonoscopy 05/19/2023 HIV Screening 05/19/2023 Hepatitis C Screening 05/19/2023 Social Influencers of Health Screening 05/19/2023 Depression Screening 04/24/2024 COVID-19 Vaccine ( - 2023-2 5 season) 2024 Influenza Vaccine (#1) 2024 HIB Vaccines Aged Out No longer eligi ble based on patient's age to complete this topic HPV Vaccines Aged Out No longer eligi ble based on patient's age to complete this topic Hepatitis A Vaccines Aged Out No long er eligible based on patient's age to complete this topic IPV Vaccines Aged Out No longer eligi ble based on patient's age to complete this topic MMR Vaccines Aged Out No longer eligi ble based on patient's age to complete this topic Meningococcal ACWY Vaccine Aged Out N o longer eligible based on patient's age to complete this topic Meningococcal B Vaccine Aged Out No l onger eligible based on patient's age to complete this topic RSV Immunization Patients Un jackie 20 months Aged Out No longer eligible b ased on patient's age to complete this topic Varicella Vaccines Aged Out No longer eligible based on patient's age to complete this topic Care Teams Marketing Sales Consultant Relationship Specialty Start Date End Date Juanito Clements MD PCP - General 03/30/22
--- OUTSIDE RECORDS SUMMARY | 2025-01-21 12:31 | XMS_ITS | Patient Health Record ---
Author Organization [facility] Address [address] [place] [address] Care Team Providers Care Cage Unloader Name Role Phone Juanito Clements MD Primary Care Provider Dm Chavez Unavailable [phone] Reason For Referral No Information Medications Medication SIG (Take, Route, Fr equency, Duration) Notes Start Date End Date Status Naproxen PRN Active PARoxetine HCl 20 MG Orally Active Ibuprofen PRN Active Immunizations Vaccine Route Administration Date Status Comme nts Influenza Unknown 06/24/2020 Refused Social History Tobacco Use: Social History Observation Description Date Details (start date - stop date) Never Smoker NA - NA Tobacco Use/Smoking Question Answer Notes Patient is a nonsmoker Alcohol Screen Question Answer Notes Did you have a drink contain ing alcohol in the past year? Yes How often did you have a dri nk containing alcohol in the past year? Monthly or less (1 point) How often did you have 6 or more drinks on one occasion in the past year? Never (0 point) Points 1 Interpretation Negative Section Notes: Nonsmoker; no sig alcohol Problems Problem Type SNOMED Code ICD Code Onset Dates Problem Status W/U Status Risk Notes Problem Screening for malignant neoplasm of colon (022651560) Encounter for screening for malignant neoplasm of colon (Z12.11) Active confirmed Problem Preprocedural examination (331695417649995) Preprocedural examination (Z01.818) Active confirmed Plan Of Treatment Future Test Test Name Order Date COLONOSCOPY 06/24/2020 Insurance Providers Payer Name Payer Address Payer Phone Subscriber Number Group Number Insured Name Patient Relationship to Insured Coverage Start Date Coverage End Date [facility] [address] [place], [place] [id number] SAVAGE WAHL Self - patient is the insured Medical (General) History Medical History History ICD Code Anxiety Denies [place],DM,CVA,Lung disease,renal dise ase Surgical History Surgery Date(Month/Year) Appendectomy Ectopic
--- OUTSIDE RECORDS SUMMARY | 2025-01-21 12:32 | XMS_ITS | Patient Health Record ---
Author Organization [facility] Address [address] [facility] [place] [address] Care Team Providers Care Biostatistics Manager Name Role Phone Juanito Clements MD Primary Care Provider Gloria Carr Unavailable [phone] Allergies No Known Allergies Reason For Referral No Information Medications Medication SIG (Take, Route, Frequency, Duration) Notes Start Date End Date Status Paxil 20 MG 1 tablet in the morn ing Orally Once a day Not-Taking Terbinafine HCl 250 MG 1 tablet Orally O nce a day for 7 days days then stop for 3 weeks repeat cycle; Duration: 90 days 05/17/2024 Active Ciclopirox 8 % 1 application [employer] ally Once a day; Duration: 30 06/20/2023 Active Wellbutrin Active LamISIL 250mg 1 tablet for 7 days, stop for 3 weeks repeat cycle orally daily; Duration: 90 days 02/02/2021 Not-Taking Ranolazine ER 500 MG 1 tablet Orally Twi ce a day Active Immunizations Vaccine Route Administration Date Status Comme nts Influenza Unknown 12/24/2023 Administered COVID-19 Pfizer BioNTech Vaccine Unknown 07/01/2020 Administered 1st vaccine Social History Tobacco Use: Social History Observation Description Date Details (start date - stop date) Never Smoker NA - NA Tobacco use other than smoking: Question Answer Notes Are you an other tobacco user? No Tobacco Control (Standard) Question Answer Notes Tobacco use: Nonsmoker Additional Findings: Tobacco non-user Current no nsmoker AUDIT-C (Standard) Question Answer Notes Did you have a drink contain ing alcohol in the past year? Yes How often did you have six o r more drinks on one occasion in the past year? Less than monthly (1 point) How many drinks did you have on a typical day when you were drinking in the past year? 1 or 2 drinks (0 point) How often did you have a dri nk containing alcohol in the past year? Monthly or less (1 point) Points 2 Interpretation Negative Problems No Known Problems Vital Signs Blood pressure diastolic 80 mm Hg 01/07/2025 Height 5ft6in in 01/07/2025 Blood pressure systolic 121 mm Hg 01/07/2025 Weight 170 lbs 01/07/2025 BMI 27.44 kg/m2 01/07/2025 Encounters Encounter Location Date Provider Diagnosis [address] [address] 03/12/2024 Gloria Black Tinea unguium B35.1 and Pain in left toe(s) M79.[address] [address] 06/18/2024 Gloria Black Tinea unguium B35.1 and Pain in left toe(s) M79.[address] [address] 09/17/2024 Gloria Black Tinea unguium B35.1 and Pain in left toe(s) M79.[address] [address] 01/07/2025 Gloria Black Tinea unguium B35.1 and Pain in left toe(s) M79.[address] [address] 03/12/2024 Gloria Black [address] [address] 05/17/2024 Gloria Black [address] [address] 07/10/2024 Gloria Black [address] [address] 12/24/2024 Gloria Black Assessments Encounter Date Diagnosis (ICD Code) Assessment Notes Treatment Notes Treatment Clinical Notes Section Notes 06/18/2024 Tinea unguium (ICD-10 - B35.1) 06/18/2024 Pain in left toe(s) (ICD-10 - M79.675) 09/17/2024 Tinea unguium (ICD-10 - B35.1) 03/12/2024 Tinea unguium (ICD-10 - B35.1) 01/07/2025 Tinea unguium (ICD-10 - B35.1) 01/07/2025 Pain in left toe(s) (ICD-10 - M79.675) 03/12/2024 Pain in left toe(s) (ICD-10 - M79.675) 09/17/2024 Pain in left toe(s) (ICD-10 - M79.675) Plan Of Treatment Pending Test Test Name Order Date *Liver Function Test (LFT) 08/28/2020 *Liver Function Test (LFT) 01/13/2021 *Liver Function Test (LFT) 09/17/2024 *Liver Function Test (LFT) 01/07/2025 *Liver Function Test (LFT) 03/25/2024 Nail Panel 03/12/2024 Next Appt Details Provider Name:Gloria Lee Dusty , 04/30/2025 02:30:00 PM, [address] [facility], [place], [address], Insurance Providers Payer Name Payer Address Payer Phone Subscriber Number Group Number Insured Name Patient Relationship to Insured Coverage Start Date Coverage End Date [place] [facility] [address] [place] [address] [id number] Lupe Pina Self - patient is the insured Medical (General) History Surgical History Surgery Date(Month/Year) appendectomy 12/2001
--- OUTSIDE RECORDS SUMMARY | 2025-01-21 12:32 | XMS_ITS | Clinical Summary ---
Author Organization [facility] Address [address] [place] [address] Care Team Providers Care Hop Worker Name Role Phone Juanito Clements MD Primary Care Provider [phone] Allergies No known active allergies Medications Medication Sig Dispensed Refills Start Date End Date Status PARoxetine (PAXIL) 20 MG tablet Take 1 tablet (20 mg total) by mouth every morning. 0 Active Active Problems No known active problems Social History Tobacco Use Types Packs/Day Years Used Date Smoking Tobacco: Never Smokeless Tobacco: Never Tobacco Cessation:Counseling Given: Not Answered Alcohol Use Standard Drinks/Week Comments Yes 0 (1 standard drink = 0.6 oz pur e alcohol) occasional Sex and Gender Information Value Date Recorded Sex Assigned at Female 03/21/2022 1:39 PM EST Gender Identity Not on file Sexual Orientation Not on file Job Start Date Occupation Industry Not on file Not on file Not on file Last Filed Vital Signs Vital Sign Reading Time Taken Comments Blood Pressure 110/66 03/30/2022 9:22 AM EST Pulse 80 03/30/2022 9:22 AM EST Temperature 36.5 C (97.7 F) 03/30/2022 8:57 AM EST Respiratory Rate 13 03/30/2022 9:22 AM EST Oxygen Saturation 97% 03/30/2022 9:22 AM EST Inhaled Oxygen Concentration - - Weight 81.6 kg (180 lb) 03/30/2022 7:42 AM EST Height 170.2 cm (5' 7 ) 03/30/2022 7:42 AM EST Body Mass Index 28.19 03/30/2022 7:42 AM EST Plan of Treatment Not on file Care Teams Hop Worker Relationship Specialty Start Date End Date Juanito Clements MD [address] [place] [id number] PCP - General Internal Medicine 03/30/22
--- OUTSIDE RECORDS SUMMARY | 2025-01-21 12:32 | XMS_ITS | Patient Health Record ---
Author Organization Juanito Clements MD Address [address] [place], [place] [id number] Care Team Providers Care Collection Systems Worker Name Role Phone Juanito Clements Primary Care Provider Allergies No Known Allergies Results Component Value Reference Range Notes Complete Blood Count Auto Di ff Reviewed date:07/18/2024 04:44:43 PM Interpretation: Performing Lab:[facility], [address] [place] [phone] Notes/Report: White Blood Count 4.1 4.8-10.8 X10*3/uL [...] NRBC Abs Auto 0.000 0.0-0.012 X10*3/uL Comprehensive [place]. Panel Fa st Reviewed date:07/18/2024 04:44:10 PM Interpretation: Performing Lab:[address] [phone] Notes/Report: Sodium 142 135-145 mmol/L Potassium 4.2 [...] Panel Reviewed date:07/18/2024 04:22:13 PM Interpretation: Performing Lab:[facility], [address] [place] [phone] Notes/Report: Triglycerides 81 <150 mg/dL Desirable Triglyceride: [...] Total Reviewed date:07/18/2024 04:22:36 PM Interpretation: Performing Lab:[facility], [address] [place] [phone] Notes/Report: Vitamin D 25-OH Total 48.3 >30 [...] t Reviewed date:07/20/2024 09:36:50 AM Interpretation: Performing Lab:[facility], [address] [place] [phone] Notes/Report: Urine, Clean Catch Color Urine Dark Yellow Appearance Urine Clear PH 6.0 5.0-9.0 Glucose Urine UA Negative Negative mg/dL Urine Blood Negative Negative Specific [place] - Urine 1.025 1.005-1.025 Urine Protein Negative Neg-Trace mg/dL Urine Ketones Negative Negative mg/dL Nitrite Urine Negative Negative Leukocyte Esterase Urine Negative Negative RBC Urine 0-2 0-2 /HPF WBC Urine 0-5 0-5 /HPF Squamous Epithelial Cell Urine 0-2 0-2 /HPF Bacteria Urine None Seen None Seen Hyaline Casts Urine 0-2 0-2 /LPF Liver Panel Reviewed date:01/21/2025 11:53:17 AM Interpretation: Performing Lab:[facility], [address] [place] [phone] Notes/Report: Bilirubin Total 0.5 0.0-1.0 mg/dL Bilirubin Direct 0.2 0.0-0.5 mg/dL Aspartate Amino Transferase 16 5-31 U/L Alanine Aminotransferase 16 0-31 U/L Total Protein 6.7 6.5-8.0 g/dL Albumin Level 4.3 3.5-5.0 g/dL Alkaline Phosphatase 53 39-117 U/L Lipid Panel Reviewed date:01/21/2025 11:53:25 AM Interpretation: Performing Lab:[facility], [address] [place] [phone] Notes/Report: Triglycerides 68 <150 mg/dL Desirable Triglyceride: [...] low results in patients with liver disease. Reason For Referral No Information Medications Medication SIG (Take, Route, Frequency, Duration) Notes Start Date End Date Status PARoxetine HCl 20 MG TAKE 1 TABLET BY [facility] EVERY DAY IN THE MORNING for 90 [...] 3 times for 10 days 02/04/2021 Not-Taking Immunizations Vaccine Route Administration Date Status Comme nts Flu Vaccine IM Intramuscular 01/22/2015 Administered pt re cieved the vaccine [facility] in [place]. Fluarix Quadrivalent IM Intramuscular 02/09/2016 Administe red SARS-COV-2 Pfizer Unknown 06/02/2020 Administered SARS-COV-2 Pfizer Unknown 07/01/2020 Administered Fluarix Quadrivalent IM Intramuscular 01/07/2021 Administe red SARS-COV-2 Pfizer Unknown 03/30/2021 Administered Fluarix Quadrivalent Unknown 03/13/2018 Refused Fluarix Quadrivalent Unknown 03/18/2019 Refused Fluarix Quadrivalent Unknown 03/26/2020 Refused Fluarix Quadrivalent Unknown 04/02/2020 Refused Shingrix Unknown 04/02/2020 Refused TDaP Unknown 04/02/2020 Refused Social History Tobacco Use: Social History [...] ast year? No Points 0 Interpretation Negative Problems Problem Type SNOMED Code ICD Code Onset Dates Problem Status W/U Status Risk Notes Problem 30830260 Vitamin D deficiency (E55.9) Active confirmed Problem 48303587 Calculus of gallbladder without cholecystitis without obstruction (K80.20) Active confirmed Problem 00709339 Dysthymia (F34.1) Active confirmed Problem 630006728 Neutropenia, unspecified type (D70.9) Active confirmed Problem 337473093 Moderate episode of recurrent major depressive disorder (F33.1) Active confirmed Problem 39556002 Atherosclerosis (I70.90) Active confirmed Problem 45153488 Premenopausal patient (N95.9) Active confirmed Problem 350428396 Abnormal Pap sme ar of cervix (R87.619) Active confirmed Problem 52292154 KAYLA (obstructive sleep apnea) (G47.33) Active confirmed Problem 996648603 Steatosis, liver (K76.0) Active confirmed Vital Signs Blood pressure diastolic 60 mm Hg 10/15/2024 Height 67 in 10/15/2024 Blood pressure systolic 102 mm Hg 10/15/2024 Weight 175 lbs 10/15/2024 BMI 27.41 kg/m2 10/15/2024 Encounters Encounter Location Date Provider Diagnosis Juanito Clements MD [address] [place] [address] Drive [address] [place] [phone] 07/18/2024 Juanito Clements Blood tests for rout ine general physical examination Z00.00 ; Vitamin D deficiency E55.9 and Atherosclerosis I70.90 Juanito Clements MD [address] [place] [address] Drive [address] [place] [phone] 10/15/2024 Juanito Clements Annual physical exam Z00.00 and Atherosclerosis I70.90 Juanito Clements MD [address] [place] [address] Drive [address] [place] [phone] 01/21/2025 Juanito Clements Atherosclerosis I70. 90 Assessments Encounter Date Diagnosis (ICD Code) Assessment Notes Treatment Notes Treatment Clinical Notes Section Notes 07/18/2024 Blood tests for routine general physical examination (ICD-10 - Z00.00) 10/15/2024 Annual physical exam (ICD-10 - Z00.00) Labs reviewed and discussed with patient 01/21/2025 Atherosclerosis (ICD-10 - I70.90) 07/18/2024 Vitamin D deficiency (ICD-10 - E55.9) 10/15/2024 Atherosclerosis (ICD-10 - I70.90) she had an us of abdomen that showed atherrosclerosis of the aorta. have discussed the significance and suggested statins. she is agreeable to this 07/18/2024 Atherosclerosis (ICD-10 - I70.90) Plan Of Treatment Pending Test Test Name Order Date Electrocardiogram (EKG) 03/28/2019 BONE DENSITY DEXA 04/02/2020 MAMMOGRAM DIGITAL BILATERAL SCREEN 03/28 US ABD 03/21/2023 CA stress test 01/07/2021 Next Appt Details Provider Name:Juanito Copeland ier, 10/13/2025 08:00:00 AM, [address] [place] [address], [address], [place], [place], [phone], Provider Name:Juanito Copeland ier, 10/20/2025 02:30:00 PM, [address] [place] [address], [address], [place], [place], [phone], Insurance Providers Payer Name Payer Address Payer Phone Subscriber Number Group Number Insured Name Patient Relationship to Insured Coverage Start Date Coverage End Date [employer] [address] [place], [place] [id number] Lupe Pina Self - patient is the insured 0 Medical (General) History Medical History History ICD Code Panic attack Panic attack F41.0 Colonoscopy 07/08/20 - Dr. Almanza (repeat 10 yrs) Surgical History Surgery Date(Month/Year) colposcopy 12/2014
--- OUTSIDE RECORDS SUMMARY | 2025-01-21 12:32 | XMS_ITS ---
Author Name [facility] Organization Unknown History of Medication Use Medication Directions Dispensed Refills Start Date End Date Stat us regadenoson (LEXISCAN) injection 0.4 mg 0.4 mg, Intravenous, Once, On Mon06/02/23 at 1530, For 1 dose, Administer DURING cardiac stress test only. Administer over approximately 10 seconds, followed immediately by a 5 mL saline flush. Avoid dietary caffeine for at least 12 hours prior to pharmacologic stress testing. 06/02/2023 06/02/2023 completed PARoxetine (Paxil) 20 MG tablet 1 tablet in the morning 03/04/2021 active Allergies Allergen Reaction Severity Comment Documented Date Source Statu s OTHER RASH/DERMATITIS Dust mites , Cats , seasonal 01/20/2022 [facility] active Problems Problem Status Onset Date Problem Type Date of Resoluti on Source Non-cardiac chest pain active 2022-01-20 ProblemAct [facility] Colon cancer screening active 2022-01-20 ProblemAct CCT Encounters Encounter Type Encounter Reason [facility] 06/02/2023 Ambulatory Angina pectoris, unspecified Angina pectoris, unspecified [facility] Care Team Organization Name Specialty Phone Email Start Date End [facility] 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
== END 2025-01-21 11:03 | disposition home or self-care (01) ==
LOC: HO.LNP 11:02
PROVIDERS: Visit Provider Internal Medicine
DX: I70.90 Unspecified atherosclerosis (principal)
CPT/HCPCS: 80061; 80076